=== PATIENT | male | born 1985 | race Caucasian/White ===

== ENCOUNTER 2020-06-30 12:25 | Outpatient (REF) | payer MEDICARE, MEDICAID, SELFPAY ==
[2020-06-30 14:02] LABS: Alanine Aminotransferase 17 U/L (0-40); Albumin Level 4.5 g/dL (3.5-5.0); Alkaline Phosphatase 69 U/L (39-117); Anion Gap 13 (12-20); Aspartate Amino Transferase 20 U/L (5-37); Bilirubin Total 0.7 mg/dL (0.0-1.0); Blood Urea Nitrogen 12 mg/dL (9-16); Calcium 8.9 mg/dL (8.4-10.2); Carbon Dioxide 27 mmol/L (22-29); Chloride 106 mmol/L (96-108); Cholesterol 213 mg/dL; Estimated Glomerular Filt Rate 56; Glucose Fasting 88 mg/dL (60-99); HDL Cholesterol 42 mg/dL; LDL Cholesterol Calculated 142 mg/dl; Potassium 4.6 mmol/l (3.3-5.1); Sodium 141 mmol/L (135-145); Total Protein 7.1 g/dL (6.5-8.0); Triglycerides 148 mg/dL
== END 2020-06-30 12:26 | disposition home or self-care (01) ==
LOC: HO.LAB 12:25
PROVIDERS: PCP Internal Medicine; Visit Provider Internal Medicine
DX: E11.9 Type 2 diabetes mellitus without complications (principal)
CPT/HCPCS: 80053; 80061

== ENCOUNTER 2020-09-06 09:16 | Outpatient (REF) | payer MEDICARE, MEDICAID, SELFPAY ==
--- NOTE | 2020-09-06 09:19 | EMG_ITS ---
HISTORY OF PRESENT ILLNESS: This is a 35-year-old man, who is on disability for some learning problems, is on no medications, comes in with 2 month history of upper extremity pain and numbness especially in his wrists on using them. 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 The right hand is worse than the left. He is on no medications except marijuana recreational. PHYSICAL EXAMINATION: On examination, he is alert and oriented with normal intellectual functions. Cranial nerves II through XII are normal. Muscle tone and strength are normal in all 4 extremities. Deep tendon reflexes symmetrical. Plantar responses flexor. No Tinel or Phalen sign. IMPRESSION: Nerve conduction EMG study: Normal electrodiagnostic study of both upper extremities. No evidence of carpal tunnel syndrome or nerve entrapment. Normal EMG of the right C5-T1 innervated muscles. MD LUCIA Jacobo/AZAR / [id number]
== END 2020-09-06 09:17 | disposition home or self-care (01) ==
LOC: HO.NEURO 09:16
PROVIDERS: Visit Provider Internal Medicine
DX: G56.01 Carpal tunnel syndrome, right upper limb (principal)
CPT/HCPCS: 95886; 95913

== ENCOUNTER 2023-12-04 13:17 | Outpatient (AMB) | payer MEDICARE, MEDICAID, SELFPAY ==
[2023-12-04 13:20] VITALS: BP 158/98; PULSE 83; O2SAT 98; BMI 37.3
--- NOTE | 2023-12-04 13:20 | MHC.PC.OV ---
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 Review of the notes had an nerve conduction test in October 2020 of the upper extremity showing normal electrodiagnostic study of both upper extremities with no evidence of carpal tunnel syndrome and normal C5-T1 innervated muscles on the right. Review of the blood work that was done in 2019 shows renal insufficiency and hypercholesterolemia. [facility] Surgical History (Updated 06/29/20 @ 14:02 by Karly Sullivan Skyla) No pertinent past surgical history Family History (Updated 12/04/23 @ 13:52 by Beatriz Gtz MD) Father Heart attack Mother Colon cancer Son No problems noted. Brother Heart attack Other AA (alcohol abuse) Mental health disorder Substance use disorder Social History (Updated 12/04/23 @ 13:54 by Beatriz Gtz MD) Housing: Other Housing Other:: In between homes Alcohol intake: current Alcohol intake frequency: a few times a month Comment: stopped 10/2023 Patient Tobacco Use Status: Current everyday Tobacco user Tobacco use type: Cigarette Cigarette Packs Per Day: 2 Cigarettes Per Day: 20 Years Smoked: pack a day since 13 (asked 11/2023) e-Cigarette/Vaping Use: Never Used Second Hand Smoke Exposure: Yes service: No Current occupational status: disabled Current occupational exposures/hazards: No Cognitive needs: No Hearing needs: No Vision needs: Yes Questionnaire PHQ-9 Over the last 2 weeks, how often have you been bothered by any of the following problems? 1. Little interest or pleasure in doing things: nearly every day 2. Feeling down, depressed, or hopeless: nearly every day 3. Trouble falling or staying asleep, or sleeping too much: more than half the days 4. Feeling tired or having little energy: nearly every day 5. Poor appetite or overeating: not at all 6. Feeling bad about yourself - or that you are a failure or have let yourself or your family down: several days 7. Trouble concentrating on things, such as reading the newspaper or watching television: more than half the days 8. Moving or speaking so slowly that other people could have noticed. Or the opposite - being so fidgety or restless that you have been moving around a lot more than usual: not at all 9. Thoughts that you would be better off or of hurting yourself in some way: not at all Total score: 14 Depression Screening Interpretation: Positive Depression Screening Done: Yes Source: Developed by Drs. Parish Conklin, Renae Montejo, Tyler Newman and colleagues, with an educational nani from [employer]. 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 What is your living situation today?: I do not have a steady places to live Within the past 12 months, did the food you bought not last and you didn't have the money to get more?: Sometimes True Within the past 12 months, did you worry whether your food would run out before you got money to buy more?: Sometimes True Do you have trouble paying for medicines?: No Do you have trouble getting transportation to medical appointments?: No Do you have trouble paying your heating and electricity bill?: No Do you have trouble taking care of your child, family member or friend?: No Do you have trouble with day-to-day activities such as bathing, preparing meals, shopping, managing finances, etc.?: No Are you currently unemployed and looking for a job?: No Are you interested in more education?: No Currently or been in a relationship where the following occur: no concerns reported THRIVE Score: 3 AUDIT C Alcohol Use Questionnaire (AUDIT-C) 1. How often do you have a drink containing alcohol?: Never (Has not drank in a month. Has a chip, going to meetings. ) 3. How often do you have six or more drinks on one occasion?: Never Total Score: 0 DENNYS-7 AMB Questionnaire DENNYS-7 Date DENNYS - 7 assessed: 12/04/23 Feeling nervous, anxious, or on edge: 2 = More than half the days Not being able to stop or control worryin = More than half the days Worrying too much about different things: 2 = More than half the days Trouble relaxin = Several days Being so restless that it is hard to sit still: 1 = Several days Becoming easily annoyed or irritable: 2 = More than half the days Feeling afraid as if something awful might happen: 2 = More than half the days Total DENNYS-7 score (0-4 normal; 5-9 mild; 10-14 moderate; 15-21 severe): 12 Source: Developed by Drs. Parish Conklin, Renae Montejo, Tyler Newman and colleagues, with an educational nani from [employer]. DENNYS-7 Assessment Billing DENNYS-7 Assessment Tool: DENNYS-7 Assessment 82043 Physical exam (Primary Care) Vital Signs: Last Vital Signs Pulse 83 12/04/23 13:20 BP 120/70 12/04/23 13:46 Pulse Ox 98 12/04/23 13:20 Oxygen Delivery Method Room Air 12/04/23 13:20 BMI result Body Mass Index 37.3 Tobacco/Smoking Status: Tobacco use Status Tobacco use date assessed 12/04/23 12/04/23 13:35 Patient Tobacco Use Status Current everyday Tobacco 12/04/23 13:54 Tobacco use type Cigarette 12/04/23 13:54 e-Cigarette/Vaping Use Never Used 12/04/23 13:54 PHQ-9: PHQ-9 Score PHQ-9: Total score 14 12/04/23 13:49 Depression Screening Interpretation: Positive Thrive Assessment: Date of Thrive Assessment Date Thrive assessed 12/04/23 12/04/23 13:35 Currently or been in a relationship where the following occur: no concerns reported Const General: alert; No acute distress Eyes Conjunctivae: conjunctivae normal Resp Auscultation: clear to auscultation bilaterally Cardio Rate: regular rate Rhythm: regular rhythm GI Inspection: Yes normal to inspection Extrem General: Yes normal to inspection and No edema Results AMB Hemoglobin A1c AMB Hemoglobin A1c 5.1 % Last Edit by June Watson CMA on 12/04/23 13:50 Immunizations pneumoc 20-maribel conj-dip cr(PF) 0.5 mL IM syringe Performing Provider: Beatriz Gtz MD Performing Location: [facility] Administered by: June Watson CMA on 12/04/23 14:13 Dose Route Admin Location Dispensed Lot Number Expiration Date NDC Lotus Notes Administrator 0.5 mL IM Left Deltoid 0.5 mL [id number] 12/16/24 8375-3354-92 [employer] VIS Given Date VIS Provided VIS Publication Date 12/04/23 Single Vaccine 21 Eligibility Eligibility Date Funding Source Not VF Eligible 12/04/23 Private Results Reviewed Results Reviewed: Laboratory Last Values Hgb A1c (Clinic) 5.1 % (4.0-6.0) 12/04/23 13:35 Assessment and Plan Assessment & Plan (1) Obesity (BMI 30-39.9): Code(s): E66.9 - Obesity, unspecified Plan: Diet and exercise (2) Hypercholesterolemia: Code(s): E78.00 - Pure hypercholesterolemia, unspecified Plan: Avoid fried foods, chicken skin, eggs, butter margarine, pastries and meat. Be it pork or beef they have a lot of cholesterol LDL goal of less than 130 and triglyceride of less than 150. (3) Renal insufficiency: Code(s): N28.9 - Disorder of kidney and ureter, unspecified Plan: Keep well hydrated avoid NSAIDs blood work will need to be repeated (4) Tobacco abuse: Code(s): Z72.0 - Tobacco use (5) GERD (gastroesophageal reflux disease): Code(s): K21.9 - Gastro-esophageal reflux disease without esophagitis Orders: Orders AMB Hemoglobin A1c Today Z13.9 - Encounter for screening, unspecified Thyroid Stimulating Hormone Today E78.00 - Pure hypercholesterolemia, unspecified Vitamin B12 and Folate Today E78.00 - Pure hypercholesterolemia, unspecified XR chest 2V Today Z72.0 - Tobacco use PFT pulmonary function test Today Z72.0 - Tobacco use Pneumococcal 20 Immunization Today Z23 - Encounter for immunization Complete Blood Count Auto Diff Today E78.00 - Pure hypercholesterolemia, unspecified Comprehensive Met. Panel Today E78.00 - Pure hypercholesterolemia, unspecified Free T4 (Free Thyroxine) Today E78.00 - Pure hypercholesterolemia, unspecified Lipid Panel Today E78.00 - Pure hypercholesterolemia, unspecified ECG 12 lead EKG Today E78.00 - Pure hypercholesterolemia, unspecified Medications: New pneumoc 20-maribel conj-dip cr(PF) 0.5 mL IM ONCE 0.5 mL 0RF Z23 - Encounter for immunization Coding Level of Care Code Est Pt Level 4 (27323) Diagnoses Obesity (BMI 30-39.9) E66.9 Hypercholesterolemia E78.00 Renal insufficiency N28.9 Tobacco abuse Z72.0 GERD (gastroesophageal reflux disease) K21.9 Additional Codes DENNYS-7 Assessment Billing - DENNYS-7 Assessment Tool: DENNYS-7 Assessment 60127 ([id number])
[2023-12-04 13:46] VITALS: BP 120/70
== END 2023-12-04 14:21 | disposition home or self-care (01) ==
PROVIDERS: PCP Internal Medicine; Visit Provider Internal Medicine
DX: E78.00 Pure hypercholesterolemia, unspecified (principal); E66.9 Obesity, unspecified; Z68.37 Body mass index [BMI] 37.0-37.9, adult; Z23 Encounter for immunization; N28.9 Disorder of kidney and ureter, unspecified; Z72.0 Tobacco use; K21.9 Gastro-esophageal reflux disease without esophagitis
CPT/HCPCS: 83036; 90471; 90677; 99214

== ENCOUNTER 2023-12-13 10:04 | Outpatient (REF) | payer MEDICARE, MEDICAID, SELFPAY ==
--- NOTE | ~2023-12-13 | XR_ITS ---
EXAMINATION: XR CHEST 2 VIEWS CLINICAL INFORMATION: Tobacco use. COMPARISON: None. TECHNIQUE: Frontal and lateral views of the chest were obtained. FINDINGS: The heart, great vessels, pulmonary vasculature and mediastinum are normal. The lungs show no focal infiltrate, effusion or pneumothorax. There is no acute osseous abnormality. XR/XR chest 2V IMPRESSION: No active cardiopulmonary disease.
[2023-12-13 10:29] LABS: MANUAL DIFF FLAG NO
[2023-12-13 11:20] LABS: Basophils Absolute Auto 0.1 X10*3/uL (0.0-0.2); Basophils Percent Auto 0.8 % (0-2); Eosinophils Absolute Auto 0.1 X10*3/uL (0.0-0.4); Eosinophils Percent Auto 1.8 % (0-4); Hematocrit 46.1 % (42.0-52.0); Hemoglobin 16.4 g/dl (14.0-18.0); Imm Gran Abs Auto 0.05 X10*3/uL (0.00-0.03); Imm Gran Pct Auto 0.6 % (0.0-0.4); Lymphocytes Absolute Auto 2.4 X10*3/uL (1.2-4.9); Mean Corpuscular HGB Conc 35.6 g/dl (31.0-36.0); Mean Corpuscular Hemoglobin 32.9 pg (27.0-33.0); Mean Corpuscular Volume 92.4 fL (80.0-98.0); Mean Platelet Volume 9.2 fL (9.4-12.4); Monocytes Absolute Auto 0.7 X10*3/uL (0.1-1.2); Monocytes Percent Auto 8.8 % (2-11); Neutrophils Absolute Auto 4.5 x10*3/uL (2.0-8.3); Platelet Count 228 X10*3/uL (160-400); Red Blood Count 4.99 X10*6/uL (4.60-5.80); Red Cell Distribution Width 12.4 % (11.0-16.0); White Blood Count 7.9 X10*3/uL (4.8-10.8)
[2023-12-13 12:27] LABS: Alanine Aminotransferase 19 U/L (0-40); Albumin Level 4.3 g/dL (3.5-5.0); Alkaline Phosphatase 81 U/L (39-117); Anion Gap 14 (12-20); Aspartate Amino Transferase 21 U/L (5-37); Bilirubin Total 0.4 mg/dL (0.0-1.0); Blood Urea Nitrogen 10 mg/dL (9-16); Calcium 9.4 mg/dL (8.4-10.2); Carbon Dioxide 25 mmol/L (22-29); Chloride 108 mmol/L (96-108); Cholesterol 193 mg/dL (<200); Estimated Glomerular Filt Rate > 60; Free T4 (Free Thyroxine) 0.93 ng/dL (0.71-1.85); Glucose Random 99 mg/dL (60-115); HDL Cholesterol 45 mg/dL (>40); LDL Cholesterol Calculated 123 mg/dL (<100); Potassium 4.1 mmol/L (3.3-5.1); Sodium 143 mmol/L (135-145); Thyroid Stimulating Hormone 1.93 uIU/mL (0.32-4.0); Total Protein 7.5 g/dL (6.5-8.0); Triglycerides 126 mg/dL (<150)
[2023-12-13 12:38] LABS: Folate 5.2 ng/mL (> or = 4.0); Vitamin B12 414 pg/mL (200-900)
== END 2023-12-13 10:05 | disposition home or self-care (01) ==
LOC: HO.XRAY 10:04
PROVIDERS: PCP Internal Medicine; Visit Provider Internal Medicine
DX: E78.00 Pure hypercholesterolemia, unspecified (principal); Z72.0 Tobacco use
CPT/HCPCS: 36415; 71046; 80053; 80061; 82607; 82746; 84439; 84443; 85025

== ENCOUNTER 2024-05-04 15:03 | Outpatient (AMB) | payer MEDICARE, MEDICAID, SELFPAY ==
[2024-05-04 15:06] VITALS: BP 130/78; PULSE 87; O2SAT 96; BMI 39.1
--- NOTE | 2024-05-04 15:06 | A.OFFPC_ITS ---
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 complains of leg swelling. noted mass on the R axilla and R testicle [facility] Surgical History (Updated 06/29/20 @ 14:02 by Karly Sullivan [facility]) No pertinent past surgical history Family History (Updated 05/04/24 @ 15:38 by Beatriz Gtz MD) Father Heart attack Mother Colon cancer, Onset Age: 70 Son No problems noted. Brother Heart attack Other AA (alcohol abuse) Mental health disorder Substance use disorder Social History (Updated 05/04/24 @ 15:39 by Beatriz Gtz MD) Housing: Other Housing Other:: In between homes Alcohol intake: current Alcohol intake frequency: a few times a month Comment: 2x a week 3 nips Patient Tobacco Use Status: Current everyday Tobacco user Tobacco use type: Cigarette Cigarette Packs Per Day: 2 Cigarettes Per Day: 10 Years Smoked: pack a day since 13 (asked 11/2023) e-Cigarette/Vaping Use: Never Used Second Hand Smoke Exposure: Yes service: No Current occupational status: disabled Current occupational exposures/hazards: No Cognitive needs: No Hearing needs: No Vision needs: Yes Questionnaire PHQ-9 Over the last 2 weeks, how often have you been bothered by any of the following problems? 1. Little interest or pleasure in doing things: several days 2. Feeling down, depressed, or hopeless: more than half the days 3. Trouble falling or staying asleep, or sleeping too much: nearly every day 4. Feeling tired or having little energy: more than half the days 5. Poor appetite or overeating: nearly every day 6. Feeling bad about yourself - or that you are a failure or have let yourself or your family down: more than half the days 7. Trouble concentrating on things, such as reading the newspaper or watching television: more than half the days 8. Moving or speaking so slowly that other people could have noticed. Or the opposite - being so fidgety or restless that you have been moving around a lot more than usual: not at all 9. Thoughts that you would be better off or of hurting yourself in some way: several days Total score: 16 Depression Screening Interpretation: Positive Depression Screening Done: Yes 96854 - PHQ-9 Billing: Yes Source: Developed by Drs. Parish Conklin, Renae Montejo, Tyler Newman and colleagues, with an educational nani from [employer]. Thrive Questionnaire Date Thrive assessed: 12/04/23 I am a: Patient What is your living situation today?: I do not have a steady places to live I am living in a car Within the past 12 months, did the food you bought not last and you didn't have the money to get more?: Often true Within the past 12 months, did you worry whether your food would run out before you got money to buy more?: Often true Do you have trouble paying for medicines?: No Do you have trouble getting transportation to medical appointments?: No Do you have trouble paying your heating and electricity bill?: No Do you have trouble taking care of your child, family member or friend?: No Do you have trouble with day-to-day activities such as bathing, preparing meals, shopping, managing finances, etc.?: No Are you currently unemployed and looking for a job?: No Are you interested in more education?: No Please select the resources that you would like help with: Housing/Long-Term Currently or been in a relationship where the following occur: No concerns reported THRIVE Score: 3 AUDIT C Alcohol Use Questionnaire (AUDIT-C) 1. How often do you have a drink containing alcohol?: 2-3 times a week 2. How many drinks containing alcohol do you have on a typical day when you are drinking?: 3 or 4 3. How often do you have six or more drinks on one occasion?: Monthly Total Score: 6 DENNYS-7 AMB Questionnaire DENNYS-7 Date DENNYS - 7 assessed: 12/04/23 Feeling nervous, anxious, or on edge: 2 = More than half the days Not being able to stop or control worryin = Nearly every day Worrying too much about different things: 3 = Nearly every day Trouble relaxin = Nearly every day Being so restless that it is hard to sit still: 1 = Several days Becoming easily annoyed or irritable: 2 = More than half the days Feeling afraid as if something awful might happen: 1 = Several days Total DENNYS-7 score (0-4 normal; 5-9 mild; 10-14 moderate; 15-21 severe): 15 Source: Developed by Drs. Parish Conklin, Renae Montejo, Tyler Newman and colleagues, with an educational nani from [employer]. Review of Systems Const Denies poor appetite and Denies weakness Eyes Denies no additional complaints ENT Reports Normal hearing present, Denies dizziness, Denies nasal congestion, Denies tinnitus and Denies sore throat Card Denies chest pain, Denies syncope, Denies rapid heart rate and Denies dyspnea Resp Denies cough and Denies dyspnea GI Denies change in stool character, Reports constipation, Denies diarrhea, Denies nausea and Denies vomiting Denies dysuria and Denies urinary frequency Neuro Reports Normal hearing present, Denies confusion, Denies dizziness, Denies syncope and Denies weakness Psych Denies confusion Physical exam (Primary Care) Vital Signs: Last Vital Signs Pulse 87 05/04/24 15:06 BP 130/78 05/04/24 15:06 Pulse Ox 96 05/04/24 15:06 Oxygen Delivery Method Room Air 05/04/24 15:06 BMI result Body Mass Index 39.1 Tobacco/Smoking Status: Tobacco use Status Tobacco use date assessed 12/04/23 05/04/24 15:11 Patient Tobacco Use Status Current everyday Tobacco 05/04/24 15:39 Tobacco use type Cigarette 05/04/24 15:39 e-Cigarette/Vaping Use Never Used 05/04/24 15:39 PHQ-9: PHQ-9 Score PHQ-9: Total score 16 05/04/24 15:34 Depression Screening Interpretation: Positive Thrive Assessment: Date of Thrive Assessment Date Thrive assessed 12/04/23 05/04/24 15:11 Currently or been in a relationship where the following occur: No concerns reported Const General: No confusion Orientation/consciousness: No confusion HENMT Head: Yes normocephalic Ears: external ears normal and TM's normal bilaterally Face and sinus: Yes normal facial exam Mouth: moist mucous membranes Throat: Yes tonsils normal Eyes Conjunctivae: conjunctivae normal Pupils: Equal, round and reactive pupils present and Pupil accommodation reflex normal Direct Ophthalmoscopy: normal light reflex Neck Neck: No lymphadenopathy Thyroid: Thyroid normal Chest Other: R axillary hyperpigmentd skin mass 2 by 3 cm Chest palpation & inspection: normal inspection of the chest Resp Effort & Inspection: normal respiratory effort and no audible wheezes Auscultation: clear to auscultation bilaterally, no crackles, no wheezes and lung sounds not diminished Cardio Rate: regular rate Rhythm: regular rhythm Peripheral pulses: radial pulses present and dorsalis pedis present GI Other: visual negative rectal mass Palpation (GI): no masses Auscultation: normal bowel sounds and normoactive bowel sounds Rectal Exam - Male: Yes deferred Other: R posterior scrotal mass 3 by 4 cm tender on palpation Skin General skin exam: no rashes or lesions noted Rashes: no rashes Neuro General: No confusion Cranial nerves: Yes Equal, round and reactive pupils present and Yes Normal hearing present Cognition (Neuro): normal cognition Gait exam (Neuro): Normal gait present Motor exam (neuro): 5/5 motor strength present throughout Deep tendon reflexes (DTR's): Right brachioradialis reflex intensity grade: 2+, Left brachioradialis reflex intensity grade: 2+, Right patellar reflex intensity grade: 2+ and Left patellar reflex intensity grade: 2+ Extrem General: No edema Immunizations Boostrix Tdap 2.5 Lf unit-8 mcg-5 Lf/0.5 mL intramuscular syringe Performing Provider: Beatriz Gtz MD [facility] Administered by: June Watson CMA on 05/04/24 16:07 Dose Route Admin Location Dispensed Lot Number Expiration Date [facility] [employer] 0.5 mL IM Left Deltoid 0.5 mL [id number] 06/06/26 25774-518-97 [employer] VIS Given Date VIS Provided VIS Publication Date 05/04/24 Single Vaccine 21 Eligibility Eligibility Date Funding Source Not [facility] Eligible 05/04/24 Private Assessment and Plan Assessment & Plan (1) Annual physical exam: Code(s): Z00.00 - Encounter for general adult medical examination without abnormal findings Plan: Patient is advised to eat healthy, keep well hydrated, keep active and have adequate sleep. (2) Tobacco abuse: Code(s): Z72.0 - Tobacco use Plan: Patient is strongly advised to stop smoking! (3) Renal insufficiency: Code(s): N28.9 - Disorder of kidney and ureter, unspecified Plan: Resolved, keep well hydrated, avoid NSAID (4) Hypercholesterolemia: Code(s): E78.00 - Pure hypercholesterolemia, unspecified Plan: Avoid fried foods, chicken skin, eggs, butter margarine, pastries and meat. Be it pork or beef they have a lot of cholesterol. Repeat blood work did decrease the LDL LDL goal of less than 130 and triglyceride of less than 150 (5) Obesity (BMI 30-39.9): Code(s): E66.9 - Obesity, unspecified Plan: Diet and exercise (6) GERD (gastroesophageal reflux disease): Code(s): K21.9 - Gastro-esophageal reflux disease without esophagitis Plan: Avoid the foods that causes that usually spicy foods, tomato products, juices, coffee, soda and foods that your sensitive to. After eating do not lie down, allow 3-4 hours before in lie down. And keep the head of bed above 30 degrees to avoid the acid from going up. (7) Reactive airway disease: Code(s): J45.909 - Unspecified asthma, uncomplicated (8) Hypersomnia: Code(s): G47.10 - Hypersomnia, unspecified (9) Axillary abscess: Comment: right Code(s): L02.419 - Cutaneous abscess of limb, unspecified (10) Testicular mass: Comment: right Code(s): N50.89 - Other specified disorders of the male genital organs (11) Tinea cruris: Code(s): B35.6 - Tinea cruris Orders: Orders RT home sleep study Today G47.10 - Hypersomnia, unspecified TDaP Immunization Today Z23 - Encounter for immunization US scrotum Today N50.89 - Other specified disorders of the male genital organs US renal BI Today N28.9 - Disorder of kidney and ureter, unspecified Referrals General Surgery Referral L02.419 - Cutaneous abscess of limb, unspecified, N50.89 - Other specified disorders of the male genital organs Medications: New albuterol sulfate 90 mcg/actuation (Ventolin HFA) 2 puffs inhalation Q4-6H PRN 8.5 grams 0RF shortness of breath or wheezing J45.909 - Unspecified asthma, uncomplicated amoxicillin-pot clavulanate 875-125 mg 1 tab PO BID 14 tabs 0RF L02.419 - Cutaneous abscess of limb, unspecified clotrimazole 1% 1 appl topical BID 4 weeks 45 grams 0RF B35.6 - Tinea cruris Boostrix Tdap (diphth,pertus(acell),tetanus) 0.5 mL IM ONCE 0.5 mL 0RF NS Z23 - Encounter for immunization miconazole nitrate 2% (Zeasorb AF) 1 appl topical DAILY 85 grams 1RF B35.6 - Tinea cruris Coding Level of Care Code Est Pt Prev Care 40-64y(93215) Diagnoses Annual physical exam Z00.00 Tobacco abuse Z72.0 Renal insufficiency N28.9 Hypercholesterolemia E78.00 Obesity (BMI 30-39.9) E66.9 GERD (gastroesophageal reflux disease) K21.9 Reactive airway disease J45.909 Hypersomnia G47.10 Axillary abscess L02.419 Testicular mass N50.89 Tinea cruris B35.6
== END 2024-05-04 16:17 | disposition home or self-care (01) ==
PROVIDERS: PCP Internal Medicine; Visit Provider Internal Medicine
DX: Z00.00 Encounter for general adult medical examination without abnormal findings (principal); Z72.0 Tobacco use; N28.9 Disorder of kidney and ureter, unspecified; E78.00 Pure hypercholesterolemia, unspecified; E66.9 Obesity, unspecified; K21.9 Gastro-esophageal reflux disease without esophagitis; J45.909 Unspecified asthma, uncomplicated; G47.10 Hypersomnia, unspecified; L02.419 Cutaneous abscess of limb, unspecified; N50.89 Other specified disorders of the male genital organs; B35.6 Tinea cruris; Z23 Encounter for immunization

== ENCOUNTER → 2024-05-04 15:03 | Outpatient (BNVA) | payer MEDICARE, MEDICAID, SELFPAY | PROVIDERS: PCP Internal Medicine; Visit Provider Internal Medicine | DX: Z00.01 Encounter for general adult medical examination with abnormal findings (principal); Z23 Encounter for immunization; B35.6 Tinea cruris; N28.9 Disorder of kidney and ureter, unspecified; E66.9 Obesity, unspecified; K21.9 Gastro-esophageal reflux disease without esophagitis; N50.89 Other specified disorders of the male genital organs; Z72.0 Tobacco use | CPT/HCPCS: 90471; 90715; 99396 ==

== ENCOUNTER 2024-05-11 09:11 | Outpatient (REF) | payer MEDICARE, MEDICAID, SELFPAY | END 2024-05-11 09:12 | disposition home or self-care (01) | LOC: HO.LAB 09:11 | PROVIDERS: PCP Internal Medicine; Referring Provider Internal Medicine; Visit Provider Surgery | DX: L02.419 Cutaneous abscess of limb, unspecified (principal); N49.2 Inflammatory disorders of scrotum | CPT/HCPCS: 10060; 55100; 87070; 87205; 99202 ==

== ENCOUNTER 2024-05-11 09:11 | Outpatient (AMB) | payer MEDICARE, MEDICAID, SELFPAY ==
--- NOTE | 2024-05-11 09:14 | MHC.OFFVIS ---
Vital Signs 05/11/24 09:20 Height 5 ft 6 in Weight 248 lb 4 oz BMI 40.1 BP 138/63 Blood Pressure Location Rt brachial Position Sitting Pulse 65 Intake Visit Reasons: abscess of the right groin and armpit Intake Note: Patient referred by pcp Dr. Gtz for abscess on rt groin present for 1yr. 2nd concern abscess on rt axilla, comes and goes for about 1yr. Enlarging. Patient c/o: painful. Girlfriend tried squeezing but nothing came out. Vascular Manager Required: No Accompanied by: Self / Same As Patient Allergies No Known Allergies Allergy (Verified 05/11/24 09:19) Medication List - Last Reconciled 05/11/24 by Nestor Hernandez MD albuterol sulfate 90 mcg/actuation (Ventolin HFA) 2 puffs inhalation Q4-6H PRN amoxicillin-pot clavulanate 875-125 mg 1 tab PO BID clotrimazole 1% 1 appl topical BID 4 weeks miconazole nitrate 2% (Zeasorb AF) 1 appl topical DAILY HPI Comments Details: Patient presents with 2 abscesses; 1 involving the right axilla, right involving the right scrotum which he has had for a proximally 3 weeks time. He has had several courses of antibiotics with limited improvement. These areas are still painful and symptomatic and he would like to have them addressed. He has no such lesions elsewhere. Chart was reviewed and patient evaluated [facility] Surgical History No pertinent past surgical history Family History Father Heart attack Mother Colon cancer, Onset Age: 70 Son No problems noted. Brother Heart attack Other AA (alcohol abuse) Mental health disorder Substance use disorder Social History Housing: Other Housing Other:: In between homes Alcohol intake: current Alcohol intake frequency: a few times a month Comment: 2x a week 3 nips Patient Tobacco Use Status: Current everyday Tobacco user Tobacco use type: Cigarette Cigarette Packs Per Day: 2 Cigarettes Per Day: 10 Years Smoked: pack a day since 13 (asked 11/2023) e-Cigarette/Vaping Use: Never Used Second Hand Smoke Exposure: Yes service: No Current occupational status: disabled Current occupational exposures/hazards: No Cognitive needs: No Hearing needs: No Vision needs: Yes Physical Exam Vital Signs: Last Vital Signs Pulse 65 05/11/24 09:20 BP 138/63 05/11/24 09:20 BMI result Body Mass Index 40.1 Other: Roughly 3 x 3 cm right scrotal abscess Extrem Other: A roughly 4 x 3 cm right axillary abscess Office Procedures I&D Drain Details: Risks, benefits, and alternatives of incision drainage of right axillary and right scrotal complex abscesses were reviewed with the patient included but not limited to bleeding, infection, recurrence, numbness, pain, scarring the patient wished to proceed. All questions answered. 1. Patient underwent 1% lidocaine Betadine prep and uneventfully incision drainage of a right axillary abscess. Culture obtained. Copious amounts permanent serial drained. Wound irrigated, packed, and dressing applied. 2. Patient underwent 1% lidocaine and Betadine prep of right scrotal abscess. Wound was drained of purulence, irrigated, packed, and dressing applied. Both procedures well tolerated. [id number]-Vhrshiew of Skin Abscess, complex All charges added?: Procedure code (CPT) selection complete Assessment & Plan Assessment & Plan (1) Axillary abscess: Comment: right Code(s): L02.419 - Cutaneous abscess of limb, unspecified Category: Surgical Plan: Patient has been given local instructions, seen by Leonard rice nurse care person, he will undergo packing changes per her schedule, analgesics, antibiotics, and will see me as directed or p.r.n.. All questions answered. (2) Scrotal abscess: Code(s): N49.2 - Inflammatory disorders of scrotum Category: Surgical Plan: See above Orders: Orders Routine Culture w Gram Stain Today L02.419 - Cutaneous abscess of limb, unspecified AMB Incision & Drainage Today L02.419 - Cutaneous abscess of limb, unspecified, N49.2 - Inflammatory disorders of scrotum Medications: New cephalexin 500 mg PO TID 30 caps 0RF hydrocodone-acetaminophen 5-325 mg Partial Fill upon patient request. 1 tab PO Q4-6H PRN 30 tabs 0RF pain Coding Level of Care Code New Pt Level 5 (02972) Diagnoses Axillary abscess L02.419 Scrotal abscess N49.2 CPT Codes I&D Drain - Drain 2: [id number] of Skin Abscess, complex ([id number])
[2024-05-11 09:20] VITALS: BP 138/63; PULSE 65; BMI 40.1
== END 2024-05-11 09:44 | disposition home or self-care (01) ==
PROVIDERS: PCP Internal Medicine; Referring Provider Internal Medicine; Visit Provider Surgery
DX: L02.411 Cutaneous abscess of right axilla (principal); N49.2 Inflammatory disorders of scrotum
CPT/HCPCS: 10060; 55100; 99204

== ENCOUNTER → 2024-05-13 09:22 | Outpatient (BNVA) | payer MEDICARE, MEDICAID, SELFPAY | PROVIDERS: PCP Internal Medicine; Visit Provider Surgery | DX: Z48.01 Encounter for change or removal of surgical wound dressing (principal) | CPT/HCPCS: 99211 ==

== ENCOUNTER 2024-05-18 10:59 | Outpatient (AMB) | payer MEDICARE, MEDICAID, SELFPAY ==
--- NOTE | 2024-05-18 11:00 | MHC.OFFVIS ---
Intake Visit Reasons: 1 wk follow up I & D x 2 Intake Note: Patient here 1wk s/p I&D on rt axilla and rt groin. Cephalexin course Patient c/o: sites slowly healing. Some oozing. Emergency Response Coordinator Required: No Accompanied by: Spouse Allergies No Known Allergies Allergy (Verified 05/18/24 11:05) HPI Comments Details: Patient presents with a significant other. Status post I&D times tube; right axilla and right groin. He has no wound issues or complaints. He completed his antibiotic course. He is undergoing local wound care. [facility] Surgical History No pertinent past surgical history Family History Father Heart attack Mother Colon cancer, Onset Age: 70 Son No problems noted. Brother Heart attack Other AA (alcohol abuse) Mental health disorder Substance use disorder Social History Housing: Other Housing Other:: In between homes Alcohol intake: current Alcohol intake frequency: a few times a month Comment: 2x a week 3 nips Patient Tobacco Use Status: Current everyday Tobacco user Tobacco use type: Cigarette Cigarette Packs Per Day: 2 Cigarettes Per Day: 10 Years Smoked: pack a day since 13 (asked 11/2023) e-Cigarette/Vaping Use: Never Used Second Hand Smoke Exposure: Yes service: No Current occupational status: disabled Current occupational exposures/hazards: No Cognitive needs: No Hearing needs: No Vision needs: Yes Physical Exam Other: Right groin wound healing very well granulating. Infection resolved Extrem Other: Right axillary wound healing very well, granulating. Infection resolved Assessment & Plan Assessment & Plan (1) Follow-up exam: Code(s): Z09 - Encounter for follow-up examination after completed treatment for conditions other than malignant neoplasm Category: Surgical Plan Patient has been given local instructions, and will otherwise follow-up p.r.n.. All questions answered. Coding Level of Care Code Global (91899) Diagnoses Follow-up exam Z09
== END 2024-05-18 11:09 | disposition home or self-care (01) ==
PROVIDERS: PCP Internal Medicine; Visit Provider Surgery
DX: Z09 Encounter for follow-up examination after completed treatment for conditions other than malignant neoplasm (principal)
CPT/HCPCS: 99024

== ENCOUNTER 2024-05-18 13:48 | Outpatient (REF) | payer MEDICARE, MEDICAID, SELFPAY ==
--- NOTE | ~2024-05-18 | US_ITS ---
EXAMINATION: US SCROTUM CLINICAL INFORMATION: Testicular mass, renal insufficiency. According to the patient, an abscess was drained from the right testicle a few days ago. COMPARISON: CT abdomen/pelvis 01/23/2017. TECHNIQUE: A sonogram of the scrotum was performed assessing ruiz-scale appearance and color Doppler flow. Spectral Doppler analysis of the arterial and venous flow were performed in the testes bilaterally. FINDINGS: RIGHT: Right testicle measures 4.34 x 2.46 x 3.58 cm, volume 20.0 mL. No focal testicular parenchymal lesions are visualized. Spectral Doppler analysis of the arterial and venous flow is normal in the right testis. There is a heterogeneous area superior and lateral to the right testis that measures 2.7 x 1.0 x 1.1 cm. Right epididymal head is normal in size. No right varicocele is seen. A small right hydrocele is seen. Right epididymal Doppler flow is normal. LEFT: Left testicle measures 4.07 x 2.26 x 2.74 cm, volume 13.2 mL. No focal testicular parenchymal lesions are visualized. Spectral Doppler analysis of the arterial and venous flow is normal in the left testis. Left epididymal head is normal in size. A small left hydrocele is seen. Left epididymal Doppler flow is normal. US/US scrotum IMPRESSION: 1. The testes appear normal. 2. There is a heterogeneous area superior and lateral to the right testis. This could represent a hematoma or residua of presumed drained abscess. 3. Small bilateral hydroceles. Electronically signed by: Jason Washington MD 07/01/2024 11:51 AM OTILIA
--- NOTE | ~2024-05-18 | US_ITS ---
EXAMINATION: US RETROPERITONEAL LIMITED (RENAL ONLY) CLINICAL INFORMATION: Renal insufficiency. COMPARISON: CT abdomen and pelvis 01/23/2017. TECHNIQUE: Real-time imaging of the kidneys. FINDINGS: RIGHT KIDNEY: 10.9 x 4.9 x 6.4 cm (SAG x AP x TRV). The kidney is normal in size, contour, and echogenicity. Renal cortical thickness is normal. No calculi or focal parenchymal lesions. No hydronephrosis. LEFT KIDNEY: 10.3 x 5.2 x 5.8 cm (SAG x AP x TRV). The kidney is normal in size, contour, and echogenicity. Renal cortical thickness is normal. No calculi or focal parenchymal lesions. No hydronephrosis. US/US renal BI IMPRESSION: Normal exam. Electronically signed by: Jason Washington MD 07/01/2024 11:51 AM EST
== END 2024-05-18 13:49 | disposition home or self-care (01) ==
LOC: HO.HMGCX 13:48
PROVIDERS: PCP Internal Medicine; Visit Provider Internal Medicine
DX: N50.89 Other specified disorders of the male genital organs (principal); N28.9 Disorder of kidney and ureter, unspecified
CPT/HCPCS: 76775; 76870; 99212

== ENCOUNTER 2024-06-08 13:00 | Outpatient (REF) | payer MEDICARE, MEDICAID, SELFPAY ==
--- NOTE | 2020-06-08 13:00 | PFT_ITS ---
Flows: FEV1: 80 % of predicted at 3.07 L FVC: 88 % of predicted at 4.15 L FEV1/FVC: 74 % Bronchodilator response: Absent Volumes: Total lung capacity: 76 % of predicted at 4.93 L Residual volume: 68 % of predicted at 1.00 L Slow vital capacity: 78 % of predicted at 3.93 L Expiratory reserve volume: 43 % of predicted at 0.59 L Diffusion capacity: Normal Impression: Mild restrictive ventilatory defect with no bronchodilator response. Decreased expiratory reserve volume suggests extrathoracic restriction likely secondary to abdominal obesity. MTDD
[2024-06-08 11:21] VITALS: PULSE 80; RESP 16; O2SAT 97
== END 2024-06-08 13:01 | disposition home or self-care (01) ==
LOC: HO.RESP 13:00
PROVIDERS: PCP Internal Medicine; Visit Provider Internal Medicine
DX: Z72.0 Tobacco use (principal)
CPT/HCPCS: 94010; 94640; 94727; 94729

== ENCOUNTER 2024-09-01 12:28 | Outpatient (AMB) | payer MEDICARE, MEDICAID, SELFPAY ==
[2024-09-01 12:43] VITALS: BP 138/72; PULSE 88; O2SAT 96; BMI 41.3
--- NOTE | 2024-09-01 12:43 | A.OFFPC_ITS ---
Vital Signs 3 09/01/24 12:43 Height 5 ft 6 in Weight 256 lb BMI 41.3 BP 138/72 Blood Pressure Location Lt brachial Position Sitting Pulse 88 Pulse Source Pulse Oximeter Pulse Oximetry (%) 96 Oxygen Delivery Method Room Air Intake Visit Reasons: Rash Allergies No Known Allergies Allergy (Verified 09/01/24 12:43) Tobacco use date assessed: 09/01/24 Dental Screening Dental Screen Date: 09/01/24 Did you have a dental visit in the last 12 months?: Yes Did you have a dental problem in the last 6 months where you did not have access to dental care?: No Was dental information given to patient?: Patient has dentist HPI Rash 2 HPI0 Details The patient is a 39-year-old male presenting with various health concerns, primarily focusing on a persistent rash in the groin and neck area. He reports that this rash is recurrent, itchy, and associated with excessive sweating, which he attributes to a fungal infection. The rash has been managed with prescribed topical creams, which alleviate symptoms temporarily. However, the absence of antifungal powder, due to insurance issues, limits further control of the sweat-induced exacerbations. Additionally, the patient is following up regarding previously drained abscesses from the right armpit and groin area. An ultrasound revealed small bilateral hydroceles which currently require no intervention as they remain asymptomatic. The patient also has a history of hypercholesterolemia, with recent improvements in his lipid profile. Previously, his low-density lipoprotein (LDL) cholesterol was recorded at 142 mg/dL, and recent assessments show a reduction to 123 mg/dL, indicating positive dietary changes and reduced intake of soda and caffeine. He experiences discomfort from an abdominal hernia, which has become more painful, especially when lying on the affected side. The patient is considering surgical intervention upon advice from his surgeon and awaits a formal referral for further evaluation. The patient also acknowledges smoking half a pack of cigarettes daily, attempting to reduce his usage. He has also expressed hesitancy towards flu vaccination, citing personal beliefs. The need for a sleep study has been discussed, given prior sleep difficulties and environmental instability; this has been postponed due to previous living conditions. [facility] Surgical History No pertinent past surgical history Family History Father Heart attack Mother Colon cancer, Onset Age: 70 Son No problems noted. Brother Heart attack Other AA (alcohol abuse) Mental health disorder Substance use disorder Social History Housing: Other Housing Other:: In between homes Alcohol intake: current Alcohol intake frequency: a few times a month Comment: 2x a week 3 nips Patient Tobacco Use Status: Current everyday Tobacco user Tobacco use type: Cigarette Cigarette Packs Per Day: 0.5 Cigarettes Per Day: 10 Years Smoked: pack a day since 13 (asked 11/2023) e-Cigarette/Vaping Use: Never Used Second Hand Smoke Exposure: Yes service: No Current occupational status: disabled Current occupational exposures/hazards: No Cognitive needs: No Hearing needs: No Vision needs: Yes Questionnaire PHQ-9 Over the last 2 weeks, how often have you been bothered by any of the following problems? 1. Little interest or pleasure in doing things: several days 2. Feeling down, depressed, or hopeless: more than half the days 3. Trouble falling or staying asleep, or sleeping too much: nearly every day 4. Feeling tired or having little energy: more than half the days 5. Poor appetite or overeating: nearly every day 6. Feeling bad about yourself - or that you are a failure or have let yourself or your family down: more than half the days 7. Trouble concentrating on things, such as reading the newspaper or watching television: more than half the days 8. Moving or speaking so slowly that other people could have noticed. Or the opposite - being so fidgety or restless that you have been moving around a lot more than usual: not at all 9. Thoughts that you would be better off or of hurting yourself in some way: several days Total score: 16 Depression Screening Interpretation: Positive Depression Screening Done: Yes 60509 - PHQ-9 Billing: Yes Source: Developed by Drs. Parish Conklin, Renae Montejo, Tyler Newman and colleagues, with an educational nani from [employer]. Thrive Questionnaire Date Thrive assessed: 09/01/24 I am a: Patient What is your living situation today?: I do not have a steady places to live I am living in a car Within the past 12 months, did the food you bought not last and you didn't have the money to get more?: Often true Within the past 12 months, did you worry whether your food would run out before you got money to buy more?: Often true Do you have trouble paying for medicines?: No Do you have trouble getting transportation to medical appointments?: No Do you have trouble paying your heating and electricity bill?: No Do you have trouble taking care of your child, family member or friend?: No Do you have trouble with day-to-day activities such as bathing, preparing meals, shopping, managing finances, etc.?: No Are you currently unemployed and looking for a job?: No Are you interested in more education?: No Please select the resources that you would like help with: Housing/[facility] Currently or been in a relationship where the following occur: No concerns reported THRIVE Score: 3 AUDIT C Alcohol Use Questionnaire (AUDIT-C) 1. How often do you have a drink containing alcohol?: 2-3 times a week 2. How many drinks containing alcohol do you have on a typical day when you are drinking?: 3 or 4 3. How often do you have six or more drinks on one occasion?: Monthly Total Score: 6 DENNYS-7 AMB Questionnaire DENNYS-7 Date DENNYS - 7 assessed: 09/01/24 Feeling nervous, anxious, or on edge: 2 = More than half the days Not being able to stop or control worryin = Nearly every day Worrying too much about different things: 3 = Nearly every day Trouble relaxin = Nearly every day Being so restless that it is hard to sit still: 1 = Several days Becoming easily annoyed or irritable: 2 = More than half the days Feeling afraid as if something awful might happen: 1 = Several days Total DENNYS-7 score (0-4 normal; 5-9 mild; 10-14 moderate; 15-21 severe): 15 Source: Developed by Drs. Parish Conklin, Renae Montejo, Tyler Newman and colleagues, with an educational nani from [employer]. Physical exam (Primary Care) Vital Signs: Last Vital Signs Pulse 88 09/01/24 12:43 BP 138/72 09/01/24 12:43 Pulse Ox 96 09/01/24 12:43 Oxygen Delivery Method Room Air 09/01/24 12:43 BMI result Body Mass Index 41.3 Tobacco/Smoking Status: Tobacco use Status Tobacco use date assessed 09/01/24 09/01/24 12:50 Patient Tobacco Use Status Current everyday Tobacco 09/01/24 12:50 Tobacco use type Cigarette 09/01/24 12:50 e-Cigarette/Vaping Use Never Used 09/01/24 12:50 PHQ-9: PHQ-9 Score PHQ-9: Total score 16 09/01/24 12:50 Depression Screening Interpretation: Positive Thrive Assessment: Date of Thrive Assessment Date Thrive assessed 09/01/24 09/01/24 12:50 Currently or been in a relationship where the following occur: No concerns reported Const General: alert; No acute distress Eyes Conjunctivae: conjunctivae normal Resp Auscultation: clear to auscultation bilaterally Cardio Rate: regular rate Rhythm: regular rhythm GI Inspection: Yes normal to inspection Abdomen image: 2 1. mild bulge on the L abdominal wall with tenderness Skin Other: maculopapuplar rash erythermatous all around the neck and groin area Extrem General: Yes normal to inspection and No edema Coding Level of Care Code Est Pt Level 4 (30825) Diagnoses Bilateral hydrocele N43.3 Tobacco abuse Z72.0 GERD (gastroesophageal reflux disease) K21.9 Hypercholesterolemia E78.00 Renal insufficiency N28.9 Obesity (BMI 30-39.9) E66.9 Tinea cruris B35.6 Abdominal wall hernia K43.9 Allergic dermatitis L23.9 Hypersomnia G47.10 Additional Codes PHQ-9 - 49971 - PHQ-9 Billing: Yes ([id number]) Assessment & Plan Assessment & Plan (1) Bilateral hydrocele: Code(s): N43.3 - Hydrocele, unspecified Category: Medical (2) Tobacco abuse: Code(s): Z72.0 - Tobacco use Category: Medical (3) GERD (gastroesophageal reflux disease): Code(s): K21.9 - Gastro-esophageal reflux disease without esophagitis Category: Medical (4) Hypercholesterolemia: Code(s): E78.00 - Pure hypercholesterolemia, unspecified Category: Medical (5) Renal insufficiency: Code(s): N28.9 - Disorder of kidney and ureter, unspecified Category: Medical (6) Obesity (BMI 30-39.9): Code(s): E66.9 - Obesity, unspecified Category: Medical (7) Tinea cruris: Code(s): B35.6 - Tinea cruris Category: Medical (8) Abdominal wall hernia: Code(s): K43.9 - Ventral hernia without obstruction or gangrene Category: Medical (9) Allergic dermatitis: Code(s): L23.9 - Allergic contact dermatitis, unspecified cause Category: Medical (10) Hypersomnia: Code(s): G47.10 - Hypersomnia, unspecified Category: Medical Plan - For the rash, continue current antifungal cream application and purchase [id number] antifungal powder for enhanced control of sweating and prevention of future episodes. - Monitor bilateral hydroceles; no immediate intervention required unless symptomatic changes occur. - Continue dietary modifications as cholesterol management has shown positive results; monitor lipid levels periodically. - For the abdominal hernia, consider surgical referral to Dr. Hernandez for potential repair, given increasing discomfort. - Advise smoking cessation strategies to reduce tobacco use further. - Administer flu vaccine today. Face Cleaner on the importance of vaccines for health protection despite personal beliefs. - Reinitiate arrangements for a home-based sleep study, taking into account current stable living conditions. Orders: Orders 2 RT home sleep study Today G47.10 - Hypersomnia, unspecified Referrals 2 General Surgery Referral K43.9 - Ventral hernia without obstruction or gangrene Medications: New 2 clotrimazole-betamethasone 1-0.05 % 1 appl topical BID 2 weeks 45 grams 0RF L23.9 - Allergic contact dermatitis, unspecified cause miconazole nitrate 2% (Zeasorb AF) 1 appl topical BID 85 grams 0RF L23.9 - Allergic contact dermatitis, unspecified cause Refilled 2 clotrimazole 1% 1 appl topical BID 4 weeks 90 grams 0RF B35.6 - Tinea cruris
== END 2024-09-01 13:24 | disposition home or self-care (01) ==
PROVIDERS: PCP Internal Medicine; Visit Provider Internal Medicine
DX: N43.3 Hydrocele, unspecified (principal); Z72.0 Tobacco use; Z68.41 Body mass index [BMI] 40.0-44.9, adult; E66.813 Obesity, class 3; K21.9 Gastro-esophageal reflux disease without esophagitis; E78.00 Pure hypercholesterolemia, unspecified; N28.9 Disorder of kidney and ureter, unspecified; B35.6 Tinea cruris; K43.9 Ventral hernia without obstruction or gangrene; L23.9 Allergic contact dermatitis, unspecified cause; G47.10 Hypersomnia, unspecified; Z23 Encounter for immunization

== ENCOUNTER → 2024-09-01 12:28 | Outpatient (BNVA) | payer MEDICARE, MEDICAID, SELFPAY | PROVIDERS: PCP Internal Medicine; Visit Provider Internal Medicine | DX: N43.3 Hydrocele, unspecified (principal); E78.00 Pure hypercholesterolemia, unspecified; F17.210 Nicotine dependence, cigarettes, uncomplicated; K21.9 Gastro-esophageal reflux disease without esophagitis; N28.9 Disorder of kidney and ureter, unspecified; E66.9 Obesity, unspecified; B35.6 Tinea cruris; K43.9 Ventral hernia without obstruction or gangrene; L23.9 Allergic contact dermatitis, unspecified cause; G47.10 Hypersomnia, unspecified; Z23 Encounter for immunization; Z72.0 Tobacco use | CPT/HCPCS: 90471; 90656; 96127; 99212 ==

== ENCOUNTER 2024-09-07 15:22 | Outpatient (AMB) | payer MEDICARE, MEDICAID, SELFPAY ==
--- NOTE | 2024-09-07 15:22 | A.OFFVIS_ITS ---
Vital Signs 09/07/24 15:29 Height 5 ft 6 in Weight 253 lb BMI 40.8 BP 135/71 Blood Pressure Location Lt brachial Position Sitting Pulse 82 Intake Visit Reasons: hernia Intake Note: Patient referred by pcp Dr. Gtz for hernia. Present for a few yrs. Patient c/o: recently became bothersome when laying on side. Bulging out. Denies nausea, vomiting, diarrhea. Lead Network Engineer Required: No Accompanied by: spouse Ursula Allergies No Known Allergies Allergy (Verified 09/07/24 15:27) HPI Comments Details: Patient presents with a significant other for concern that he may have an abdominal wall hernia. This is in his left lateral mid abdomen. He thinks he has a bulge or swelling there. In the meantime, he is tolerating a diet. He is having regular bowel habits. Does occasional strenuous activities PFSH Surgical History No pertinent past surgical history Family History Father Heart attack Mother Colon cancer, Onset Age: 70 Son No problems noted. Brother Heart attack Other AA (alcohol abuse) Mental health disorder Substance use disorder Social History Housing: Other Housing Other:: In between homes Alcohol intake: current Alcohol intake frequency: a few times a month Comment: 2x a week 3 nips Patient Tobacco Use Status: Current everyday Tobacco user Tobacco use type: Cigarette Cigarette Packs Per Day: 0.5 Cigarettes Per Day: 10 Years Smoked: pack a day since 13 (asked 11/2023) e-Cigarette/Vaping Use: Never Used Second Hand Smoke Exposure: Yes service: No Current occupational status: disabled Current occupational exposures/hazards: No Cognitive needs: No Hearing needs: No Vision needs: Yes Physical Exam Vital Signs: Last Vital Signs Pulse 82 09/07/24 15:29 BP 135/71 09/07/24 15:29 BMI result Body Mass Index 40.8 GI Other: Patient was examined both supine and standing with Valsalva. Very protuberant corpulent abdomen. Small reducible umbilical hernia but this is not the site of his symptoms. He has left mid abdominal area which he feels his hernia though none was demonstrated clinically. Bilateral groin exam negative. Genitalia within normal limits. Assessment & Plan Assessment & Plan (1) Left flank mass: Code(s): R19.00 - Intra-abdominal and pelvic swelling, mass and lump, unspecified site Category: Surgical Plan: Because of the significant corpulent of the abdomen, exam is somewhat ch allenging although no obvious hernia was demonstrated. Current plan is to arrange for an ultrasound of the area to rule out any hernia or pathology and patient was see me after the study. All questions answered. Orders: Orders US abdomen limited 09/07/24 R19.00 - Intra-abdominal and pelvic swelling, mass and lump, unspecified site Coding Level of Care Code Est Pt Level 4 (72773) Diagnoses Left flank mass R19.00
[2024-09-07 15:29] VITALS: BP 135/71; PULSE 82; BMI 40.8
== END 2024-09-07 15:39 | disposition home or self-care (01) ==
PROVIDERS: PCP Internal Medicine; Visit Provider Surgery
DX: R19.00 Intra-abdominal and pelvic swelling, mass and lump, unspecified site (principal)
CPT/HCPCS: 99214

== ENCOUNTER → 2024-09-07 15:22 | Outpatient (BNVA) | payer MEDICARE, MEDICAID, SELFPAY | PROVIDERS: PCP Internal Medicine; Visit Provider Surgery | DX: K42.9 Umbilical hernia without obstruction or gangrene (principal); R19.00 Intra-abdominal and pelvic swelling, mass and lump, unspecified site | CPT/HCPCS: 99212 ==

== ENCOUNTER 2024-11-10 09:13 | Outpatient (AMB) | payer MEDICARE, MEDICAID, SELFPAY ==
--- NOTE | 2024-11-10 09:17 | A.OFFVIS_ITS ---
Intake Visit Reasons: right axillary abscess Intake Note: Patient c/o abscess on Rt axilla. Denies pain, oozing. Was removed in August but keeps growing back. Night Time Nanny Required: No Accompanied by: Self / Same As Patient Allergies No Known Allergies Allergy (Verified 11/10/24 09:20) HPI Comments Details: Patient whom I have seen in the past who presents here with a recurrence in his right axillary abscess. He has required I&D in the past. This has been going on for several days time. Spontaneously drained. He presents here for further evaluation. As hernia noted, he has been seen for this issue in the past. [facility] Surgical History No pertinent past surgical history Family History Father Heart attack Mother Colon cancer, Onset Age: 70 Son No problems noted. Brother Heart attack Other AA (alcohol abuse) Mental health disorder Substance use disorder Social History Housing: Other Housing Other:: In between homes Alcohol intake: current Alcohol intake frequency: a few times a month Comment: 2x a week 3 nips Patient Tobacco Use Status: Current everyday Tobacco user Tobacco use type: Cigarette Cigarette Packs Per Day: 0.5 Cigarettes Per Day: 10 Years Smoked: pack a day since 13 (asked 11/2023) e-Cigarette/Vaping Use: Never Used Second Hand Smoke Exposure: Yes service: No Current occupational status: disabled Current occupational exposures/hazards: No Cognitive needs: No Hearing needs: No Vision needs: Yes Physical Exam Extrem Other: Right axilla demonstrates an inflamed sebaceous cyst which has spontaneously drained. Surrounding erythema. No I&D required at this time. Assessment & Plan Assessment & Plan (1) Infected sebaceous cyst: Code(s): L72.3 - Sebaceous cyst; L08.9 - Local infection of the skin and subcutaneous tissue, unspecified Category: Surgical Plan Patient was been given local instructions including warm compresses, script for antibiotics, and will see me as directed or p.r.n.. Once the inflammatory process has resolved, consideration will be made for excision of this recurrent infected symptomatic sebaceous cyst. All questions answered. Medications: New cephalexin 500 mg PO TID 30 caps 0RF Coding Level of Care Code Est Pt Level 4 (32646) Diagnoses Infected sebaceous cyst L72.3; L08.9
== END 2024-11-10 09:26 | disposition home or self-care (01) ==
LOC: HO.HGS 09:14
PROVIDERS: PCP Internal Medicine; Visit Provider Surgery
DX: L72.3 Sebaceous cyst (principal); L08.9 Local infection of the skin and subcutaneous tissue, unspecified
CPT/HCPCS: 99214

== ENCOUNTER → 2024-11-10 09:13 | Outpatient (BNVA) | payer MEDICARE, MEDICAID, SELFPAY | PROVIDERS: PCP Internal Medicine; Visit Provider Surgery | DX: Z09 Encounter for follow-up examination after completed treatment for conditions other than malignant neoplasm (principal); Z87.2 Personal history of diseases of the skin and subcutaneous tissue | CPT/HCPCS: 99212 ==

== ENCOUNTER 2024-11-23 13:03 | Outpatient (AMB) | payer MEDICARE, MEDICAID, SELFPAY ==
--- NOTE | 2024-11-23 13:08 | MHC.OFFVIS ---
Intake Visit Reasons: right axillary abscess Intake Note: Patient here to follow up cyst on Rt axilla. Cephalexin course completed. Allergies No Known Allergies Allergy (Verified 11/23/24 13:08) HPI Comments Details: Patient was whom I know from the past who presents with follow-up status post right axillary abscess/infection. He has had marked improvement of this. Patient also would like to have his umbilical hernia dressed. He has had this for an uncertain amount of time. Is increasing in size, become more symptomatic. He otherwise tolerating a diet. He has regular bowel habits. No other GI issues or complaints. He does occasional strenuous activities.. Chart was reviewed and patient evaluated [facility] Surgical History No pertinent past surgical history Family History Father Heart attack Mother Colon cancer, Onset Age: 70 Son No problems noted. Brother Heart attack Other AA (alcohol abuse) Mental health disorder Substance use disorder Social History Housing: Other Housing Other:: In between homes Alcohol intake: current Alcohol intake frequency: a few times a month Comment: 2x a week 3 nips Patient Tobacco Use Status: Current everyday Tobacco user Tobacco use type: Cigarette Cigarette Packs Per Day: 0.5 Cigarettes Per Day: 10 Years Smoked: pack a day since 13 (asked 11/2023) e-Cigarette/Vaping Use: Never Used Second Hand Smoke Exposure: Yes service: No Current occupational status: disabled Current occupational exposures/hazards: No Cognitive needs: No Hearing needs: No Vision needs: Yes Physical Exam Chest Other: Chest breath sounds bilaterally, HS 1 in 2 GI Other: Abdomen corpulent, soft, benign. Roughly 2 cm reducible umbilical hernia.. Groin exam negative Extrem Other: Infected right axillary sebaceous cyst has markedly improved. Erythema and edema resolved Assessment & Plan Assessment & Plan (1) Umbilical hernia: Code(s): K42.9 - Umbilical hernia without obstruction or gangrene Category: Surgical (2) Sebaceous cyst of axilla: Code(s): L72.3 - Sebaceous cyst Category: Surgical Plan Risks, benefits, alternatives of 1. Umbilical hernia repair with mesh 2. Right axillary sebaceous cyst excision were reviewed with the patient included but not limited to bleeding, infection, recurrence, numbness, pain, scarring and the patient wished to proceed. All questions answered. Arrangements will be made for this on a day which is convenient for him. Coding Level of Care Code Est Pt Level 5 (04837) Diagnoses Umbilical hernia K42.9 Sebaceous cyst of axilla L72.3
== END 2024-11-23 13:18 | disposition home or self-care (01) ==
PROVIDERS: PCP Internal Medicine; Visit Provider Surgery
DX: K42.9 Umbilical hernia without obstruction or gangrene (principal); L72.3 Sebaceous cyst
CPT/HCPCS: 99214

== ENCOUNTER → 2024-11-23 13:03 | Outpatient (BNVA) | payer MEDICARE, MEDICAID, SELFPAY | PROVIDERS: PCP Internal Medicine; Visit Provider Surgery | DX: K42.9 Umbilical hernia without obstruction or gangrene (principal); L72.3 Sebaceous cyst | CPT/HCPCS: 99212 ==

== ENCOUNTER 2024-11-29 13:29 | Outpatient (AMB) | payer MEDICARE, MEDICAID, SELFPAY ==
--- NOTE | 2024-11-29 13:32 | A.OFFPC_ITS ---
Vital Signs 11/29/24 13:34 Height 5 ft 6 in Weight 255 lb 6 oz BMI 41.2 BP 110/64 Blood Pressure Location Lt brachial Position Sitting Pulse 99 Pulse Source Pulse Oximeter Temp 97.7 F Temp Source Temporal Artery Scan Pulse Oximetry (%) 94 Oxygen Delivery Method Room Air Intake Visit Reasons: Ear Infection Intake Note: Patient complains of right ear infection. Operations Manager Assistant Required: No Wire Web Worker: Not Required per policy Accompanied by: Self / Same As Patient Allergies No Known Allergies Allergy (Verified 11/29/24 13:44) Medication List - Last Reconciled 11/29/24 by Anna Villa PA-C albuterol sulfate 90 mcg/actuation (Ventolin HFA) 2 puffs inhalation Q4-6H PRN aspirin 81 mg PO DAILY clotrimazole 1% 1 appl topical BID 4 weeks clotrimazole-betamethasone 1-0.05 % 1 appl topical BID 2 weeks miconazole nitrate 2% (Zeasorb AF) 1 appl topical BID Tobacco use date assessed: 11/29/24 Dental Screening Dental Screen Date: 09/01/24 HPI Ear Infection HPI Details 39-year-old male with past medical histo ry of hypercholesterolemia, renal insufficiency, GERD, tobacco abuse, reactive airway disease last seen 08/2024 coming in for acute problem. Presenting with suspected otitis externa in the right ear, beginning three days ago. The patient reports difficulty hearing, popping noise, and jaw pain associated with teeth clenching. Recently finished antibiotics for an upcoming umbilical hernia surgery. There have been no fevers or difficulty swallowing. The patient used Q-tips to alleviate itching, leading to scabbing. He also reports picking at the scabs in his ears. [facility] Surgical History No pertinent past surgical history Family History Father Heart attack Mother Colon cancer, Onset Age: 70 Son No problems noted. Brother Heart attack Other AA (alcohol abuse) Mental health disorder Substance use disorder Social History Housing: Other Housing Other:: In between homes Alcohol intake: former Comment: 2x a week 3 nips Patient Tobacco Use Status: Current everyday Tobacco user Tobacco use type: Cigarette Cigarette Packs Per Day: 0.5 Cigarettes Per Day: 10 Years Smoked: pack a day since 13 (asked 11/2023) e-Cigarette/Vaping Use: Never Used Second Hand Smoke Exposure: Yes service: No Current occupational status: disabled Current occupational exposures/hazards: No Cognitive needs: No Hearing needs: No Vision needs: Yes Questionnaire Thrive Questionnaire Date Thrive assessed: 09/01/24 DENNYS-7 AMB Questionnaire DENNYS-7 Date DENNYS - 7 assessed: 09/01/24 Source: Developed by Drs. Parish Conklin, Renae Montejo, Tyler Newman and colleagues, with an educational nani from [employer]. Review of Systems Const Denies body aches, Denies chills, Denies fever(s), Denies headache(s) and Denies poor appetite Eyes Reports no additional complaints ENT Denies dysphagia, Reports otalgia, Denies facial pain, Denies headache(s) and Denies odynophagia Card Denies chest pain and Denies dyspnea Resp Denies dyspnea GI Denies dysphagia and Denies odynophagia Reports no additional complaints Musc Denies abnormal gait Skin/Breast Reports system reviewed and no additional complaints, except as documented Neuro Denies abnormal gait and Denies headache(s) Psych Reports no additional complaints Physical exam (Primary Care) Vital Signs: Last Vital Signs Temp 97.7 F 11/29/24 13:34 Pulse 99 11/29/24 13:34 BP 110/64 11/29/24 13:34 Pulse Ox 94 11/29/24 13:34 Oxygen Delivery Method Room Air 11/29/24 13:34 BMI result Body Mass Index 41.2 Tobacco/Smoking Status: Tobacco use Status Tobacco use date assessed 11/29/24 11/29/24 13:40 Patient Tobacco Use Status Current everyday Tobacco 11/29/24 13:39 Tobacco use type Cigarette 11/29/24 13:39 e-Cigarette/Vaping Use Never Used 11/29/24 13:39 Thrive Assessment: Date of Thrive Assessment Date Thrive assessed 09/01/24 11/29/24 13:32 Const General: cooperative, healthy appearing, comfortable and no acute distress Orientation/consciousness: patient oriented x3 HENMT Other: No tenderness to palpation over bilateral mastoid processes. Tenderness to palpation over right pinna and right TMJ Head: Yes normocephalic Ears: hearing grossly normal bilaterally, TM normal on the left, EAC's normal (Left only), Abnormal EAC present edema on the right and unable to visualize TM on the right General nose exam: Normal external nose present Eyes General: appearance normal, both eyes and all related structures Conjunctivae: conjunctivae normal Neck Neck: Yes full ROM and Yes no lymphadenopathy Resp Effort & Inspection: normal respiratory effort Auscultation: clear to auscultation bilaterally, no crackles, no rales, no rhonchi and no wheezes Cardio Rate: regular rate Rhythm: regular rhythm Skin General skin exam: no rashes or lesions noted Neuro General: patient oriented x3 Gait exam (Neuro): Normal gait present Extrem General: Yes normal to inspection, Yes full ROM and No edema Psych Affect: normal affect Attitude: cooperative Insight: Good insight present (Psych) Judgement: Good judgement present (Psych) Coding Level of Care Code Est Pt Level 3 (14821) Diagnoses Obesity (BMI 30-39.9) E66.9 Otitis externa H60.90 Assessment & Plan Assessment & Plan (1) Obesity (BMI 30-39.9): Code(s): E66.9 - Obesity, unspecified Category: Medical Plan: Healthy diet and regular exercise is encouraged. (2) Otitis externa: Code(s): H60.90 - Unspecified otitis externa, unspecified ear Category: Medical Plan: I prescribed doxycycline to cover potential bacterial infection and any accompanying skin infection due to manipulation with Q-tips. Eardrops with steroids and antibiotics are also prescribed to reduce inflammation and complement antibiotic treatment. Patient is advised against inserting objects in the ear to avoid exacerbating the condition. If symptoms worsen or do not improve in a few days, the patient should seek emergency care. Avoidance of teeth clenching is recommended to help alleviate jaw pain. Plan This note was constructed using voice recognition software. While every effort has been made to ensure accuracy and child custody evaluator, still areas may have been included sometimes these areas may affect the content or meeting of the given symptoms. Total time spent caring for the patient today was 20 minutes. This includes time spent before the visit reviewing the chart, time spent during the visit, and time spent after the visit and documentation. Patient was informed and verbally consented to the use of an ambient scribe for clinic note d ocumentation during this visit. Medications: New doxycycline hyclate 100 mg PO BID 14 caps 0RF ciprofloxacin-dexamethasone 0.3-0.1 % 4 drps otic (ear) right BID 7 days 7.5 mL 0RF
[2024-11-29 13:34] VITALS: BP 110/64; PULSE 99; TEMP 36.5; O2SAT 94; BMI 41.2
== END 2024-11-29 14:07 | disposition home or self-care (01) ==
LOC: HO.HMCH 13:29
PROVIDERS: PCP Internal Medicine
DX: H60.91 Unspecified otitis externa, right ear (principal); E66.9 Obesity, unspecified; Z68.41 Body mass index [BMI] 40.0-44.9, adult

== ENCOUNTER → 2024-11-29 13:29 | Outpatient (BNVA) | payer MEDICARE, MEDICAID, SELFPAY | PROVIDERS: PCP Internal Medicine | DX: E78.00 Pure hypercholesterolemia, unspecified (principal); K21.9 Gastro-esophageal reflux disease without esophagitis; E66.9 Obesity, unspecified; H60.90 Unspecified otitis externa, unspecified ear; Z87.891 Personal history of nicotine dependence | CPT/HCPCS: 99212 ==

== ENCOUNTER 2024-12-16 08:59 | Day surgery (SDC) | payer MEDICARE, MEDICAID, SELFPAY ==
[2024-12-14 09:46] VITALS: BMI 40.8
--- NOTE | 2024-12-14 14:19 | HO.ANESPROP2 ---
Documented by User: Faby Mijares NP 12/14/24 14:20 HPI - Anesthesia Eval Consult details Narrative: 39yo Mf or Repair Hernia Umbilical Reducible with mesh, Right Excision axillary Mass 11/2024 treatment for ear infection PMF Active Problems Active Problems: All Active Problems Otitis externa (Acute) Sebaceous cyst of axilla (Acute) Umbilical hernia (Acute) Infected sebaceous cyst (Acute) Left flank mass (Acute) Allergic dermatitis (Acute) Abdominal wall hernia (Acute) Bilateral hydrocele (Acute) Follow-up exam (Acute) Scrotal abscess (Acute) Tinea cruris (Acute) Testicular mass (Acute) Axillary abscess (Acute) Hypersomnia (Acute) Reactive airway disease (Acute) Annual physical exam (Acute) Tobacco abuse (Acute) GERD (gastroesophageal reflux disease) (Acute) Renal insufficiency (Acute) Hypercholesterolemia (Acute) Obesity (BMI 30-39.9) (Acute) Past Medical History Medical History (Updated 12/16/24 @ 09:59 by Cinda Knight RN) Asthma Elevated cholesterol GERD (gastroesophageal reflux disease) Reactive airway disease Family History Family History Father Heart attack Mother Colon cancer, Onset Age: 70 Son No problems noted. Brother Heart attack Other AA (alcohol abuse) Mental health disorder Substance use disorder Surgical History Surgical History No pertinent past surgical history Social History Social History Housing: Other Housing Other:: In between homes Are you a primary interior plant caretaker to a significant other at home: No Do you presently have visiting nurse or other home services: No Alcohol intake: former Comment: 2x a week 3 nips Patient Tobacco Use Status: Current everyday Tobacco user Tobacco use type: Cigarette Cigarette Packs Per Day: 0.5 Cigarettes Per Day: 10 Years Smoked: pack a day since 13 (asked 11/2023) e-Cigarette/Vaping Use: Never Used Second Hand Smoke Exposure: Yes service: No Current occupational status: disabled Current occupational exposures/hazards: No Cognitive needs: No Hearing needs: No Vision needs: Yes Meds Allergies Allergy/AdvReac Type Severity Reaction Status Date / Time No Known Allergies Allergy Verified 12/16/24 10:00 Home Medications ?Medication ?Instructions ?Recorded ?Confirmed ?Last Taken ?Type aspirin 81 mg tablet,delayed 81 mg PO DAILY 09/01/24 12/14/24 11/16/24 History release Exam Height,Weight and Vital Signs: Height 5 ft 6 in Weight 114.759 kg Assessment and Plan Assessment Anesthesia Assessment: Chart Reviewed Documented by User: Michael Valenzuela MD 12/16/24 11:14 [facility] Past Medical History Medical History (Updated 12/16/24 @ 09:59 by Cinda Knight RN) Asthma Elevated cholesterol GERD (gastroesophageal reflux disease) Reactive airway disease Family History Family History Father Heart attack Mother Colon cancer, Onset Age: 70 Son No problems noted. Brother Heart attack Other AA (alcohol abuse) Mental health disorder Substance use disorder Family history of problems with anesthesia: No Surgical History Surgical History No pertinent past surgical history History of Problems with Anesthesia: No Social History Social History Housing: Other Housing Other:: In between homes Are you a primary interior plant caretaker to a significant other at home: No Do you presently have visiting nurse or other home services: No Alcohol intake: former Comment: 2x a week 3 nips Patient Tobacco Use Status: Current everyday Tobacco user Tobacco use type: Cigarette Cigarette Packs Per Day: 0.5 Cigarettes Per Day: 10 Years Smoked: pack a day since 13 (asked 11/2023) e-Cigarette/Vaping Use: Never Used Second Hand Smoke Exposure: Yes service: No Current occupational status: disabled Current occupational exposures/hazards: No Cognitive needs: No Hearing needs: No Vision needs: Yes Meds Allergies Allergy/AdvReac Type Severity Reaction Status Date / Time No Known Allergies Allergy Verified 12/16/24 10:00 Home Medications ?Medication ?Instructions ?Recorded ?Confirmed ?Last Taken ?Type aspirin 81 mg tablet,delayed 81 mg PO DAILY 09/01/24 12/14/24 11/16/24 History release Exam Airway Mallampati Class: III TM Dist: <=3cm Neck ROM: Full Loose/Missing/Broken Teeth: No Heart: ok Lungs: ok Assessment and Plan Assessment Anesthesia Assessment: Anesthesia Plan Discussed Final Anesthetic Review Family History of Problems with Anesthesia: No History of Problems with Anesthesia: No NPO: Yes ASA Class: III Final Preanesthetic Review: No Changes in Pt Med Stat, Meds/Allgs Chart Reviewed, Consent Obtained/Reviewed and Anes Risks/Benef Reviewed Patient Risk: Intermediate Procedure Risk: Low Anesthetic Plan Anesthetic Plan: GA and Agree w/ Assess. and Plan Disposition: Standard PACU
[2024-12-16 10:06] VITALS: BP 128/75; PULSE 66; RESP 14; TEMP 37; O2SAT 96; BMI 40.6
[2024-12-16] MEDS: Lactated Ringers 1,000 ML 100 ML IVCONT (10:23)
--- NOTE | 2024-12-16 11:08 | P.HPSUR_ITS ---
Pre-Procedural Eval Section A - 24 Hr Update-Section A only Date of Service: 12/16/24 The patient is an INPATIENT: No Changes since office visit: Yes Patient answered all questions; No Cold of Flu in the past 2 weeks, No New Medical Problems and No Changes in Medication The patient has been examined within 24 hours of the surgical procedure. The History & Physical has been completed within 30 days and I have reviewed it.: No Section B - Complete if H&P > 30 days Chief Complaint: Umbilical hernia without obstruction or gangrene Details of Present Illness: 39-year-old male patient presenting with complaints of an enlarging umbilical hernia which is causing some discomfort. He denies nausea, vomiting, fever, chills, diarrhea or constipation. He denies a previous history of hernia surgery. He also complains of a persistent cyst in the right axilla. This was previously excised in the office however residual cyst is still present and causing discomfort. He presents today for repair of the um bilical hernia with mesh as well as excision of the right axillary cyst. Relevant Family History (Specify if Yes): No Relevant Social History: Tobacco Use Present Medications: see Short Stay Collaborative assessment Medical History: Significant History (Renal insufficiency, obesity, GERD, reactive airway disease) History of Previous Operations: No relevant previous surgery Allergies: Allergies Allergy/AdvReac Type Severity Reaction Status Date / Time No Known Allergies Allergy Verified 12/16/24 10:00 Review of Systems Sugical H&P ROS: Negative: Constitution, Cardiovascular, Respiratory, Gastrointestinal, Genitourinary and Musculoskeletal and Yes, Specify: Integumentary (Skin lesion right axilla) Exam Surgical H&P Exam: Normal: HEENT, Normal: Heart, Normal: Lungs, Normal: Extremities and Normal: Neurological and Significant Findings: Abdomen (Small umbilical hernia, easily reducible with light pressure no skin changes) and Significant Findings: Skin (2 cm exquisitely tender epidermal inclusion cyst of the right axilla) Plan Diagnosis/Plan: Unchanged I have reviewed the history and physical and performed a pertinent physical examination on my patient. No changes have occurred unless specified. I reviewed the procedure, alternatives and risks involving repair of the umbilical hernia with mesh and excision of the right axillary epidermal inclusion cyst (sebaceous cyst). He consents to both surgeries. All his questions were answered to his apparent satisfaction. Time Spent With Patient Time: Total time managing care of this patient today ____ minutes.
[2024-12-16] MEDS: ceFAZolin Sodium/Dextrose,Iso 2 GM/50 ML PIGGYBACK IV (11:16)
--- NOTE | 2024-12-16 12:04 | P.OP_ITS ---
Operative Note Operative Note Date of Service: 12/16/24 Narrative: Preoperative diagnosis: Reducible umbilical hernia, epidermal inclusion cyst right axilla Postoperative diagnosis: Same Procedure: Repair of umbilical hernia with mesh (2 cm), excision of epidermal inclusion cyst (3 cm). Surgeon: Oj Singh MD Agricultural Equipment Mechanic: Katerine Pratt PA-C; Zen Carbone PA-C Anesthesia: General LMA Indications for procedure: 39-year-old male patient presenting with a symptomat ic umbilical hernia. On examination the hernia measures approximately 2 cm in diameter and increases in size with Valsalva maneuvers but does reduce with light pressure. He does have some tenderness to palpation as well. He denies nausea, vomiting, fever or chills. He also reports a right axillary cyst which was previously excised but has returned and presents today for wider excision. Operative findings: 2 cm umbilical hernia, repaired using a 4.6 cm round Ventralex mesh Specimen: Epidermal inclusion cyst right axilla Estimated blood loss: 10 mL Complications: None Procedure details: Patient was brought to the OR placed in a supine position. After administering general anesthesia the patient's abdomen was prepped with ChloraPrep and draped in a sterile fashion. A surgical time-out was called the consent confirmed. Patient received preoperative antibiotics and Venodyne boots were in place. Local anesthesia consisting of 0.5% Sensorcaine was infiltrated over the umbilicus in a transverse fashion. A transverse incision was then made in a curvilinear fashion over the umbilicus. This was carried down through the subcutaneous tissue up to the hernia sac. The umbilical skin was then dissected off of the fascia and hernia. A 2 cm umbilical hernia was identified. The fascial edges were identified and freed. Herniating contents contain mainly preperitoneal fat. This was reduced into the abdominal cavity. A preperitoneal space was then dissected using electrocautery and blunt dissection. Next day 4.6 cm round Ventralex mesh was obtained. This was deployed within the preperitoneal space and secured in 4 quadrants using a 0 Tycron suture. The fascia was then closed over the mesh using a [id number] Tycron suture. Approximately 5 mL of Zenrelef was instilled prior to complete closure of the fascia. Wounds were then irrigated with saline solution and suctioned dry. Subcutaneous tissue and umbilical skin was then reapproximated to the fascia using a 3-0 Polysorb suture. Dermis was reapproximated using interrupted 3-0 Polysorb sutures. Skin was closed using a running subcuticular 4-0 Polysorb suture. Steri-Strips, 4 x 4 gauze and Tegaderm were then applied. Next attention was directed to the right axilla. A 3 cm epidermal inclusion cyst was identified in this location. Skin was prepped with Betadine and draped in a sterile fashion. Local anesthesia was then infiltrated around the cyst. An elliptical incision was then made with a scalpel and carried out through subcutaneous tissue and around the cyst wall. Hemostasis was assured using electrocautery. The cyst was completely excised and sent to pathology for further examination. Wounds were then irrigated with saline solution and suctioned dry. Dermis was then reapproximated using interrupted 3-0 Polysorb sutures. Skin was closed using interrupted 3-0 nylon sutures. Sterile dressings consisting of 4 x 4 gauze and paper tape were then applied. The patient tolerated the procedure well. Sponge, instrument, and needle counts reported as correct. The patient was transferred to PACU in stable condition.
[2024-12-16 12:55] VITALS: BP 113/71; RESP 15; TEMP 36.2; O2SAT 99
[2024-12-16 13:00] VITALS: BP 117/73; PULSE 61; RESP 15; O2SAT 99
[2024-12-16 13:05] VITALS: BP 120/71; PULSE 63; RESP 17; O2SAT 99
[2024-12-16 13:10] VITALS: BP 123/72; PULSE 62; RESP 17; O2SAT 99
[2024-12-16 13:25] VITALS: BP 122/74; PULSE 63; RESP 17; TEMP 36.1; O2SAT 100
== END 2024-12-16 13:49 | disposition home or self-care (01) ==
PROVIDERS: PCP Internal Medicine; Visit Provider Surgery
PROC: (CPT 49591; principal; 2024-12-16 11:10)
PROC: (CPT 49591; 2024-12-16 11:10)
DX: K42.9 Umbilical hernia without obstruction or gangrene (principal); L72.3 Sebaceous cyst; J45.909 Unspecified asthma, uncomplicated; E78.00 Pure hypercholesterolemia, unspecified; Z79.82 Long term (current) use of aspirin; F17.210 Nicotine dependence, cigarettes, uncomplicated
CPT/HCPCS: 49591; 11403; 88304; C1781; C9088; J0690; J1885; J2003; J2704; J2795; J3010

== ENCOUNTER → 2024-12-16 08:59 | Outpatient (BNV) | payer MEDICARE, MEDICAID, SELFPAY | PROVIDERS: PCP Internal Medicine; Visit Provider Surgery | DX: K42.9 Umbilical hernia without obstruction or gangrene (principal); L72.0 Epidermal cyst | CPT/HCPCS: 11403; 49591 ==

== ENCOUNTER 2024-12-27 10:27 | Outpatient (AMB) | payer MEDICARE, MEDICAID, SELFPAY ==
--- NOTE | 2024-12-27 10:37 | MHC.OFFVIS ---
Vital Signs 12/27/24 10:46 Height 5 ft 6 in Weight 253 lb 6 oz BMI 40.9 BP 121/81 Blood Pressure Location Lt brachial Position Sitting Pulse 68 Intake Visit Reasons: S/P umbil. hernia, Rt. axillary mass excision Intake Note: Patient is seen in office for post op assessment post Repair of umbilical hernia & excision of epidermal inclusion cyst. Pt c/o: admits to pain in the belly button, specially when bending, incision below the left axilla has a small area open with minimal discharge surgery:12/16/24 Senior Group Manager Required: No Accompanied by: Family/Other Allergies No Known Allergies Allergy (Verified 12/27/24 10:46) HPI HPI S/P umbil. hernia, Rt. axillary mass excision: Details: Patient reports he is doing well, the umbilical incision site has been healing well no concerns. He notes in the immediate days postop that he had some abdominal pain after eating but this has been improving. He notes that the axillary incision site has been draining some fluid from a small hole just above the incision site he has been trying to keep this dry and has reddened irregularity changing dressings. Has had issues with tape pulling off some of his skin at times of removal. He endorses some mild pain at both incision sites. Also endorses abdominal incisional site pain with ambulation. 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 Brother Heart attack Other AA (alcohol abuse) Mental health disorder Substance use disorder Social History Housing: Other Housing Other:: In between homes Are you a primary career services representative to a significant other at home: No Do you presently have visiting nurse or other home services: No Alcohol intake: former Comment: 2x a week 3 nips Patient Tobacco Use Status: Current everyday Tobacco user Tobacco use type: Cigarette Cigarette Packs Per Day: 0.5 Cigarettes Per Day: 10 Years Smoked: pack a day since 13 (asked 11/2023) e-Cigarette/Vaping Use: Never Used Second Hand Smoke Exposure: Yes service: No Current occupational status: disabled Current occupational exposures/hazards: No Cognitive needs: No Hearing needs: No Vision needs: Yes Physical Exam Vital Signs: Last Vital Signs Pulse 68 12/27/24 10:46 BP 121/81 12/27/24 10:46 BMI result Body Mass Index 40.9 Const General: comfortable and no acute distress Orientation/consciousness: patient oriented x3 GI Other: Umbilical incision site intact no surrounding erythema, mild tenderness to palpation Right axillary incision site sutures intact. Small 1 cm open wound just superior to the incision site with scant amount of serous fluid discharge. No surrounding erythema, warmth or edema Inspection: No Abdominal wall edema and No distended Palpation (GI): Soft to palpation, Tenderness to palpation present (GI) (Mild tenderness) periumbilically, no guarding and not rigid Neuro General: patient oriented x3 Assessment & Plan Assessment & Plan (1) S/P umbilical hernia repair, follow-up exam: Code(s): Z09 - Encounter for follow-up examination after completed treatment for conditions other than malignant neoplasm Category: Surgical (2) Sebaceous cyst of axilla: Comment: Right Code(s): L72.3 - Sebaceous cyst Category: Surgical Plan 39-year-old male status post umbilical hernia repair with mesh and right axillary sebaceous cyst excision on 12/16/2024 presents to the office for routine follow-up. Pathology of right axillary excision shows ruptured epidermal inclusion cyst. Overall patient doing well, umbilical incision site healing well patient has mild pain with ambulation. No concerns for infection. Abdominal exam otherwise benign. Right axillary incision has a small 1 cm open wound just superior to the incision site with seroma collection. The incision site remains intact. The seroma was drained in the office using a Q-tip, sutures were removed in the office, patient tolerated this well. The wound was redressed in the office. Recommend that he continue to dress the wound daily. Recommended continued avoidance of heavy lifting greater than 15 to 20 lb and avoidance of strenuous activity. Patient states she will be returning to work will try to do light duty as possible. Patient will return in 1 month for follow-up and wound check. We discussed return precautions, including increasing pain, increasing discharge, warmth, redness malodor from the wound and fever/chills. Patient can return sooner as needed if concern for infection Dr. Gomez evaluated the right axillary incision site and agrees with the above plan. Coding Level of Care Code Est Pt Level 3 (25093) Diagnoses S/P umbilical hernia repair, follow-up exam Z09 Sebaceous cyst of axilla L72.3
[2024-12-27 10:46] VITALS: BP 121/81; PULSE 68; BMI 40.9
== END 2024-12-27 11:03 | disposition home or self-care (01) ==
LOC: HO.HGS 10:27
PROVIDERS: PCP Internal Medicine
DX: L72.3 Sebaceous cyst (principal); Z09 Encounter for follow-up examination after completed treatment for conditions other than malignant neoplasm
CPT/HCPCS: 99213

== ENCOUNTER → 2024-12-27 10:27 | Outpatient (BNVA) | payer MEDICARE, SELFPAY | PROVIDERS: PCP Internal Medicine | DX: Z09 Encounter for follow-up examination after completed treatment for conditions other than malignant neoplasm (principal); Z98.890 Other specified postprocedural states; Z87.19 Personal history of other diseases of the digestive system | CPT/HCPCS: 99212 ==

== ENCOUNTER 2025-04-01 00:04 | Emergency (ER) | payer MEDICARE, SELFPAY ==
[2025-04-01 00:40] VITALS: BP 117/70; PULSE 71; RESP 18; TEMP 36.7; O2SAT 95; BMI 39.2
== END 2025-04-01 03:23 | disposition left against medical advice (07) ==
PROVIDERS: Emergency Provider Emergency Medicine
DX: S61.250A Open bite of right index finger without damage to nail, initial encounter (principal); W55.81XA Bitten by other mammals, initial encounter; Y93.89 Activity, other specified; Y92.480 Sidewalk as the place of occurrence of the external cause; Y99.9 Unspecified external cause status; Z53.21 Procedure and treatment not carried out due to patient leaving prior to being seen by health care provider
CPT/HCPCS: 99281

== ENCOUNTER 2025-04-01 11:52 | Emergency (ER) | payer MEDICARE, MEDICAID, SELFPAY ==
[2025-04-01 12:02] VITALS: BP 134/81; PULSE 64; RESP 18; TEMP 36.6; O2SAT 98; BMI 38.7
--- NOTE | 2025-04-01 12:06 | ED_ITS ---
HPI - Animal Bite General Chief Complaint: Animal Bite Stated Complaint: Animal bite Time Seen by Provider: 04/01/25 15:14 History of Present Illness ED Provider: shania HPI narrative: 40 M with R finger tip bite by skunk 24 hr ago. No bleeding. Sought care last night but left ED before seeing provider.The skunk appeared altered or ataxic or acting injured. Related Data Home Medications ?Medication ?Instructions ?Recorded ?Confirmed aspirin 81 mg tablet,delayed 81 mg PO DAILY 09/01/24 0 12/14/24 release Previous Rx's ?Medication ?Instructions ?Recorded albuterol sulfate 90 mcg/actuation 2 puff inhalation Q 4-6H PRN 05/04/24 aerosol inhaler (Ventolin HFA) shortness of breath or wheezing #8.5 grams clotrimazole 1 % topical cream 1 appl topical BID 4 we eks #90 09/01/24 grams clotrimazole-betamethasone 1 1 appl topical BID 2 week s #45 09/01/24 %-0.05 % topical cream grams miconazole nitrate 2 % topical 1 appl topical BID #85 grams 09/01/24 powder (Zeasorb AF) Allergies Allergy/AdvReac Type Severity Reaction Status Date / Time pea pods Allergy Anaphylaxis Uncoded 04/01/25 12:06 [facility] Past Medical History Medical History Asthma Elevated cholesterol GERD (gastroesophageal reflux disease) Reactive airway disease Surgical History H/O excision of mass (12/16/24) Hx of umbilical hernia repair (12/16/24) Family History Family History Father Heart attack Mother Colon cancer, Onset Age: 70 Son No problems noted. Brother Heart attack Other AA (alcohol abuse) Mental health disorder Substance use disorder Social History Social History Housing: Other Housing Other:: In between homes Are you a primary continuum of care manager to a significant other at home: No Do you presently have visiting nurse or other home services: No Alcohol intake: former Comment: 2x a week 3 nips Patient Tobacco Use Status: Current everyday Tobacco user Tobacco use type: Cigarette Cigarette Packs Per Day: 0.5 Cigarettes Per Day: 10 Years Smoked: pack a day since 13 (asked 11/2023) e-Cigarette/Vaping Use: Never Used Second Hand Smoke Exposure: Yes Advance Directives: No Advance Directives Information Provided: Yes Do you have a plan to hurt others: No Plan service: No Current occupational status: disabled Current occupational exposures/hazards: No Cognitive needs: No Hearing needs: No Vision needs: Yes Physical Exam ED Exam Exam: GENERAL: Well appearing. No apparent distress. Alert. HEAD/NECK: No visual trauma. EYES: Normal to inspection. No conjunctival erythema. No discharge. ENMT: Hearing grossly normal. External nose normal. RESPIRATORY: Respiratory effort normal. CARDIOVASCULAR: Additional details (Grossly well perfused). SKIN: No jaundice. small bite wound R distal index NEUROLOGICAL: Alert. Moving all extremities x4. Additional details (No gross motor deficits. Normal tone. ). PSYCHIATRIC: Alert. Appearance appropriate for situation.Or Vital Signs: Vital Signs - 24 hr 04/01/25 12:02 Temperature 98 F Pulse Rate 64 Respiratory Rate 18 Blood Pressure 134/81 Pulse Oximetry 98 Oxygen Delivery Method Room Air BMI result Body Mass Index 38.7 Course Course Course Narrative: Inocencia Galavizkev PLASTIC [employer]APER 04/01 1206 This is a rapid medical exam. Defer additional HPI, ROS and PE to primary provider. 40-year-old male who is left-hand dominant presents the ER with complaints of skunk bite to the right hand 2nd digit which occurred last evening. Will order rabies vaccine VSS Medications Administered Discontinued Medications Generic Name Dose Route Start Last Admin Trade Name Freq PRN Reason Stop Dose Admin Ondansetron HCl 4 mg 04/01/25 17:08 04/01/25 17:12 Ondansetron Odt 4 Mg Tab.Rapdis TRANSLINGU 04/01/25 17:09 4 mg ONCE ONE Administration Rabies Immune Globulin 2,240 unit 04/01/25 12:07 04/01/25 16:26 Rabies Immune Globulin/Pf 300 Unit/Ml Vial 20 unit/kg (2240 unit) 04/01/25 12:08 2,240 unit IM Administration ONCE ONE Rabies Vaccine 1 ml 04/01/25 12:06 04/01/25 16:24 Rabies Vaccine (Pcec)/Pf 1 Ml Vial IM 04/01/25 12:07 1 ml .ONCE ONE Administration Medical Decision Making Medical Decision Making MDM Narrative: Medical Decision Makin male likely rabies exposure proximally 24 hours ago. Potentially rabid or injured source. Wound clean , no bleading. Does not appear infected. Plan for IG and vaccine for rabies. Preliminary Favored Differential Diagnosis:animal bite, possible rabies exposure among additional considered etiologies Testing Interpreted Independently: Not Applicable Radiology or Lab testing Results Reviewed: Not Applicable Consults: Not Applicable Independent Historians/External Chart Reviews: Not Applicable Social Determinants of Health Impacting MDM/Planning: Not Applicable Discharge Plan Discharge Clinical Impression: Rabies contact Patient Disposition: Home, Self-Care Instructions: Rabies (ED) Additional Instructions: DISCHARGE DIAGNOSES: [01] HISTORY OF PRESENTATION: ?[03] EMERGENCY DEPARTMENT COURSE,TESTS, TREATMENTS: While in the ED today [04] DISCHARGE MEDICATIONS: ?[We have made no changes to your regular medication regimen] FOLLOW-UP: ?Call your primary or general physician soon as possible to discuss your symptoms, your ED visit and to discuss follow up plans [06] INSTRUCTIONS ?& RETURN PRECAUTIONS: If any symptoms change first call your primary physician, if it is after-hours your primary doctors office should have a provider cloth sponger you can speak with. If the symptoms are severe or very concerning to you then call 911 or return to the ED. Nguyễn Marie MD Emergency Physician [facility] Rabies follow up with the [facility]: Upon discharge from the ED today, you will be contacted by the Infusion Center to schedule your follow up Rabies vaccines. You will need a total of 3 more injections. If for some reason you do not receive a call, please call the Infusion Center directly at [phone]. Follow up with your primary care provider after completion of the vaccine to have a titer drawn to ensure the vaccines effectiveness. Prescriptions: No Action albuterol sulfate [Ventolin HFA] 90 mcg/actuation HFA aerosol inhaler 2 puff inhalation Q4-6H PRN (Reason: shortness of breath or wheezing) Qty: 8.5 0RF aspirin 81 mg tablet,delayed release (DR/EC) 81 mg PO DAILY clotrimazole-betamethasone 1-0.05 % cream 1 appl topical BID 14 Days Qty: 45 0RF clotrimazole 1 % cream 1 appl topical BID 28 Days Qty: 90 0RF miconazole nitrate [Zeasorb AF] 2 % powder 1 appl topical BID Qty: 85 0RF Interventions: ED Discharge Assessment Last Done: 04/01/25 16:35 Discharge Date/Time: 04/01/25 17:13 Print Language: Lebanese
[2025-04-01] MEDS: Rabies Vaccine (PCEC)/PF 1 ML VIAL IM (16:24)
[2025-04-01 16:35] VITALS: BP 134/81; PULSE 64; RESP 18; TEMP 36.6; O2SAT 98
== END 2025-04-01 17:13 | disposition home or self-care (01) ==
PROVIDERS: Emergency Provider Emergency Medicine; PCP Internal Medicine
DX: S61.250A Open bite of right index finger without damage to nail, initial encounter (principal); W55.81XA Bitten by other mammals, initial encounter; Y93.89 Activity, other specified; Y92.414 Local residential or business street as the place of occurrence of the external cause; Y99.9 Unspecified external cause status; Z20.3 Contact with and (suspected) exposure to rabies; Z23 Encounter for immunization
CPT/HCPCS: 90375; 90471; 90675; 96372; 99283; 99284

== ENCOUNTER 2025-04-08 07:46 | Outpatient (AMB) | payer MEDICARE, MEDICAID, SELFPAY ==
[2025-04-08 07:53] VITALS: BP 122/74; PULSE 77; TEMP 36.3; O2SAT 97; BMI 39.2
--- NOTE | 2025-04-08 07:53 | A.OFFPC_ITS ---
Vital Signs 04/08/25 07:53 Height 5 ft 7 in Weight 250 lb BMI 39.2 BP 122/74 Blood Pressure Location Lt brachial Position Sitting Pulse 77 Pulse Source Pulse Oximeter Temp 97.3 F Temp Source Temporal Artery Scan Pulse Oximetry (%) 97 Oxygen Delivery Method Room Air Intake Visit Reasons: [facility] - Animal bite, swollen feet Allergies pea pods Allergy (Uncoded 04/08/25 07:56) Anaphylaxis Tobacco use date assessed: 04/08/25 Dental Screening Dental Screen Date: 04/08/25 Did you have a dental visit in the last 12 months?: Yes Did you have a dental problem in the last 6 months where you did not have access to dental care?: No Was dental information given to patient?: Patient has dentist HPI HPI Comments History of Present Illness Details 40 y/o Male patient who presents to the clinic today for EDF. He was admitted at [facility] on 04/01 for an evaluation and treatment following an Animal Bite right fingertip(skunk). He did receive an initial Rabies Shot in the ED that Day. Already has scheduled appointments for additional shots. Today Pt c/o B/L Lower extremities Pain, numbness, tingling and swelling for over a year now. Reports that symptoms come and go. He does endorse diet high in Sodium and sugar. Reports pain with walking and standing. He has not taken any OTC medication for relief. Denies SOB, or CP. No prior h/o Blood Clots. Pt asking for Podiatry referral for his Toe Nail care. [facility] Medical History (Updated 04/08/25 @ 08:15 by Cinda Swartz NP) Onychomycosis Neuropathic pain of both feet Asthma Elevated cholesterol GERD (gastroesophageal reflux disease) Reactive airway disease Surgical History H/O excision of mass (12/16/24) Hx of umbilical hernia repair (12/16/24) Family History Father Heart attack Mother Colon cancer, Onset Age: 70 Son No problems noted. Brother Heart attack Other AA (alcohol abuse) Mental health disorder Substance use disorder Social History Housing: Other Housing Other:: In between homes Are you a primary respiratory care practitioner to a significant other at home: No Do you presently have visiting nurse or other home services: No Alcohol intake: former Comment: 2x a week 3 nips Patient Tobacco Use Status: Current everyday Tobacco user Tobacco use type: Cigarette Cigarette Packs Per Day: 0.5 Cigarettes Per Day: 10 Years Smoked: pack a day since 13 (asked 11/2023) e-Cigarette/Vaping Use: Never Used Second Hand Smoke Exposure: Yes service: No Current occupational status: disabled Current occupational exposures/hazards: No Cognitive needs: No Hearing needs: No Vision needs: Yes Questionnaire PHQ-9 Over the last 2 weeks, how often have you been bothered by any of the following problems? 1. Little interest or pleasure in doing things: not at all 2. Feeling down, depressed, or hopeless: not at all 3. Trouble falling or staying asleep, or sleeping too much: not at all 4. Feeling tired or having little energy: not at all 5. Poor appetite or overeating: not at all 6. Feeling bad about yourself - or that you are a failure or have let yourself or your family down: not at all 7. Trouble concentrating on things, such as reading the newspaper or watching television: nearly every day 8. Moving or speaking so slowly that other people could have noticed. Or the opposite - being so fidgety or restless that you have been moving around a lot more than usual: not at all 9. Thoughts that you would be better off or of hurting yourself in some way: not at all Total score: 3 Source: Developed by Drs. Parish Conklin, Renae Montejo, Tyler Newman and colleagues, with an educational nani from [employer]. Thrive Questionnaire Date Thrive assessed: 09/01/24 I am a: Patient What is your living situation today?: I have a steady place to live Within the past 12 months, did the food you bought not last and you didn't have the money to get more?: Often true Within the past 12 months, did you worry whether your food would run out before you got money to buy more?: Often true Do you have trouble paying for medicines?: No Do you have trouble getting transportation to medical appointments?: No Do you have trouble paying your heating and electricity bill?: No Do you have trouble taking care of your child, family member or friend?: No Do you have trouble with day-to-day activities such as bathing, preparing meals, shopping, managing finances, etc.?: No Are you currently unemployed and looking for a job?: No Are you interested in more education?: No Please select the resources that you would like help with: Food and Utilities Currently or been in a relationship where the following occur: No concerns reported THRIVE Score: 2 AUDIT C Alcohol Use Questionnaire (AUDIT-C) 1. How often do you have a drink containing alcohol?: Never 3. How often do you have six or more drinks on one occasion?: Never Total Score: 0 DENNYS-7 AMB Questionnaire DENNYS-7 Date DENNYS - 7 assessed: 09/01/24 Feeling nervous, anxious, or on edge: 2 = More than half the days Not being able to stop or control worryin = More than half the days Worrying too much about different things: 2 = More than half the days Trouble relaxin = Several days Being so restless that it is hard to sit still: 1 = Several days Becoming easily annoyed or irritable: 1 = Several days Feeling afraid as if something awful might happen: 0 = Not at all Total DENNYS-7 score (0-4 normal; 5-9 mild; 10-14 moderate; 15-21 severe): 9 Source: Developed by Drs. Parish Conklin, Renae Montejo, Tyler Newman and colleagues, with an educational nani from [employer]. Review of Systems Const All systems reviewed & are unremarkable except as noted in HPI and below Physical exam (Primary Care) Vital Signs: Last Vital Signs Temp 97.3 F 04/08/25 07:53 Pulse 77 04/08/25 07:53 BP 122/74 04/08/25 07:53 Pulse Ox 97 04/08/25 07:53 Oxygen Delivery Method Room Air 04/08/25 07:53 BMI result Body Mass Index 39.2 Tobacco/Smoking Status: Tobacco use Status Tobacco use date assessed 04/08/25 04/08/25 07:57 Patient Tobacco Use Status Current everyday Tobacco 04/08/25 07:53 Tobacco use type Cigarette 04/08/25 07:53 e-Cigarette/Vaping Use Never Used 04/08/25 07:53 PHQ-9: PHQ-9 Score PHQ-9: Total score 3 04/08/25 08:03 Thrive Assessment: Date of Thrive Assessment Date Thrive assessed 09/01/24 04/08/25 07:53 Currently or been in a relationship where the following occur: No concerns reported Const General: no acute distress Nutritional Appearance: obese Orientation/consciousness: patient oriented x3 Resp Effort & Inspection: normal respiratory effort Cardio Heart sounds: S1 normal heart sound present and S2 normal heart sound present Skin Nails: yellow and thickened (B/L Feet) Neuro General: patient oriented x3, gait normal and moves all extremities Extrem Right lower extremity: full ROM, lower leg Details: tenderness and non-pitting edema Details: 1+; no erythema and foot Details: normal capillary refill, tenderness Location: of the dorsal foot and of the plantar foot and edema (Trace ); no crepitus Left lower extremity: full ROM and lower leg Details: tenderness and pitting edema Details: 1+; no erythema and no crepitus Psych Speech and movement: Normal speech and movement present Coding Level of Care Code Est Pt Level 4 (13416) Diagnoses Animal bite T14.8XXA Neuropathic pain of both feet G57.93 Onychomycosis B35.1 Time Spent (min) 20 Assessment & Plan Assessment & Plan (1) Animal bite: Code(s): T14.8XXA - Other injury of unspecified body region, initial encounter Category: Medical Plan: Resolved,wound has healed well. Continue with Rabies Shot (2) Neuropathic pain of both feet: Code(s): G57.93 - Unspecified mononeuropathy of bilateral lower limbs Category: Medical Plan: Ordered Diclofenac for pain relief Ordered Furosemide for 7 days. He does have Trace Edema on both L/E Placed referral to Podiatry (3) Onychomycosis: Code(s): B35.1 - Tinea unguium Category: Medical Plan: Placed referral to Podiatry. Orders: Referrals Podiatry Referral B35.1 - Tinea unguium Medications: New furosemide (Lasix) 20 mg PO DAILY 7 tabs 0RF G57.93 - Unspecified mononeuropathy of bilateral lower limbs diclofenac potassium 50 mg PO BID 14 tabs 0RF 7 days G57.93 - Unspecified mononeuropathy of bilateral lower limbs
== END 2025-04-08 08:10 | disposition home or self-care (01) ==
LOC: HO.HMCH 07:46
PROVIDERS: Visit Provider Nurse Practitioner Family
DX: G57.93 Unspecified mononeuropathy of bilateral lower limbs (principal); B35.1 Tinea unguium; T14.8XXA Other injury of unspecified body region, initial encounter

== ENCOUNTER → 2025-04-08 07:46 | Outpatient (BNVA) | payer MEDICARE, MEDICAID, SELFPAY | PROVIDERS: Visit Provider Nurse Practitioner Family | DX: M79.662 Pain in left lower leg (principal); M79.661 Pain in right lower leg; G57.93 Unspecified mononeuropathy of bilateral lower limbs; B35.1 Tinea unguium; S61.259A Open bite of unspecified finger without damage to nail, initial encounter; W64.XXXA Exposure to other animate mechanical forces, initial encounter; Y93.9 Activity, unspecified; Y92.9 Unspecified place or not applicable; Y99.8 Other external cause status | CPT/HCPCS: 99212 ==

== ENCOUNTER 2025-04-14 09:00 | Outpatient (RCR) | payer MEDICARE, MEDICAID, SELFPAY ==
[2025-04-04 14:56] VITALS: BP 125/83; PULSE 70; RESP 16; TEMP 37.3; O2SAT 99
[2025-04-04] MEDS: Rabies Vaccine (PCEC)/PF 1 ML VIAL IM (15:03)
[2025-04-08 12:47] VITALS: BP 121/63; PULSE 87; RESP 16; TEMP 36.9; O2SAT 98
[2025-04-08] MEDS: Rabies Vaccine (PCEC)/PF 1 ML VIAL IM (12:49)
[2025-04-14 09:06] VITALS: BP 121/75; PULSE 67; RESP 16; TEMP 36.1; O2SAT 100
[2025-04-14] MEDS: Rabies Vaccine (PCEC)/PF 1 ML VIAL IM (09:07)
== END 2025-04-14 09:11 | disposition home or self-care (01) ==
LOC: HO.INF 09:00
PROVIDERS: Visit Provider Nurse Practitioner Family
DX: Z20.3 Contact with and (suspected) exposure to rabies (principal); T14.8XXD Other injury of unspecified body region, subsequent encounter; W64.XXXD Exposure to other animate mechanical forces, subsequent encounter
CPT/HCPCS: 90471; 90675

== ENCOUNTER 2025-04-26 12:28 | Outpatient (AMB) | payer MEDICARE, MEDICAID, SELFPAY ==
--- NOTE | 2025-04-26 12:36 | MHC.OFFVIS ---
Vital Signs 04/26/25 12:37 Height 5 ft 7 in Weight 240 lb BMI 37.6 Intake Visit Reasons: New Pt- Bilateral Tinea Unguium Intake Note: Ramón is a 40 year old male who presents today as a new patient for an evaluation of Bilateral Tinea unguium. He mentions he has not tried OTC treatment. Patient reports toe nail seems to be growing inward and a possible bunnion on the left pinky toe. Left Foot pain has been going for about 3 months. Allergies pea pods Allergy (Uncoded 04/08/25 07:56) Anaphylaxis HPI Comments Details: The patient is a 40-year-old male with a past medical history as seen below who was accompanied by his spouse. He presents with foot pain associated with a tailor's bunion and callus formation. The pain is localized around the pinky toe and feels like the toes are in a vice telephoto engineer, exacerbated by walking and driving. The callus has been present for some time, and the patient finds temporary relief by peeling it off, although it recurs. The patient also reports an ingrown toenail on the left big toe, which is not currently ingrown but has changed shape due to pressure from the bunion and footwear. The patient wears three different pairs of shoes, including work boots, which may contribute to the condition. Additionally, the patient has a fungal nail infection on the right big toe, which has been present for approximately three months. The patient admits to not allowing the feet to air out, which may have contributed to the fungal infection. He denies any recent injuries. He denies any other pedal concerns. Patient was seen wearing sneakers today. [facility] Medical History (Updated 04/26/25 @ 13:05 by Concha Schmitt DPM) Pain in left foot Cellulitis of toe of left foot Ingrowing left great toenail Callus of foot Other specified epidermal thickening Pain of right foot Onychogryphosis Onychomycosis of right great toe Onychomycosis Neuropathic pain of both feet Asthma Elevated cholesterol GERD (gastroesophageal reflux disease) Reactive airway disease Surgical History H/O excision of mass (12/16/24) Hx of umbilical hernia repair (12/16/24) Family History Father Heart attack Mother Colon cancer, Onset Age: 70 Son No problems noted. Brother Heart attack Other AA (alcohol abuse) Mental health disorder Substance use disorder Social History Housing: Other Housing Other:: In between homes Are you a primary home health care respiratory therapist to a significant other at home: No Do you presently have visiting nurse or other home services: No Alcohol intake: former Comment: 2x a week 3 nips Patient Tobacco Use Status: Current everyday Tobacco user Tobacco use type: Cigarette Cigarette Packs Per Day: 0.5 Cigarettes Per Day: 10 Years Smoked: pack a day since 13 (asked 11/2023) e-Cigarette/Vaping Use: Never Used Second Hand Smoke Exposure: Yes service: No Current occupational status: disabled Current occupational exposures/hazards: No Cognitive needs: No Hearing needs: No Vision needs: Yes Review of Systems Const Details: - Musculoskeletal: Reports foot pain localized around the pinky toe, exacerbated by walking and driving. - Dermatological: Reports callus formation on bilateral feet, with temporary relief upon peeling. - Nail: Reports ingrown toenail on the left big toe medial border and fungal infection on the right big toe. All systems reviewed & are unremarkable except as noted in HPI and below Physical Exam Vital Signs: BMI result Body Mass Index 37.6 Extrem Other: Bilateral lower extremity focused physical exam: Derm: Hyperkeratotic lesion noted to the lateral aspect of the left 5th toe at the area of the IPJ and the medial aspect of the right hallux in the lateral of the IPJ. Dystrophic and thickened toenail noted to the right hallux with subungual debris, ingrown medial border nail noted to the left hallux with mild edema. Slightly thickened nails noted to remaining toes. No purulence or drainage noted. No erythema noted. Vascular: DP/PT pulses palpable. Capillary refill time less than 3 seconds x10. No varicosities noted. Neuro: Protective sensation is grossly intact. - Musculoskeletal: Mild tailor's bunion noted to the left 5th toe. Pain on palpation to the hyperkeratotic lesions, worse to the left 5th toe. Pain on palpation to the medial border of the left hallucal nail in the area of the ingrown. Range of motion of the forefoot and hindfoot within normal limits. MMT 5/5. No gait abnormalities noted. Ankle/foot/toe images:  1. 2. 3. 4. Office Procedures AMB Debridement/Avulsion Podia Details: Procedure:Left hallux partial nail avulsion of the medial border Cleansed left hallux with alcohol swab and injected 10cc of 1%lidocaine plain in a hallux block fashion. Next applied a tourniquet to the left hallux and then cleansed the left hallux with Betadine. Attention was drawn to the medial border of the left hallux and a [place] was utilized to free the offending nail border from the nail bed. Next an Portuguese anvil was utilized to trim and cut the offending nail border and a hemostat was used to remove the offending nail border completely. Triple antibiotic ointment, a Band-Aid, and Coban was then applied to the left hallux. Procedure was done with no incidents. Provided patient with aftercare instructions. 21470-Hrztouheksb of Callus (2-4) (B/L: Left 5th toe & right hallux) 45268 Partial/Total nail avulsion (1 nail) (Left hallux medial border) Procedure code (CPT) selection complete Office Meds lidocaine HCl 10 mg/mL (1 %) injection solution Performing Provider: Concha Schmitt DPM Performing Location: [facility] [place] [facility] Administered by: Concha Schmitt DPM on 04/26/25 14:22 Dose Route Admin Location Dispensed Lot Number Expiration Date [facility] [employer] Coater 10 mL subcut 10 mL 5589-3593-54 HOSPIRA/PFIZER Total Dispensed Waste 10 mL 0 % Triple Antibiotic 3.5 mg-400 unit-5,000 unit topical ointment packet Performing Provider: Concha Schmitt DPM Performing Location: [facility] [place] [facility] Administered by: Concha Schmitt DPM on 04/26/25 14:22 Dose Route Admin Location Dispensed Lot Number Expiration Date [facility] [employer] 1 appl topical 1 appl 50656-764-91 PADAGIS povidone-iodine 10 % topical swab Performing Provider: Concha Schmitt DPM Performing Location: [facility] [place] [facility] Administered by: Concha Schmitt DPM on 04/26/25 14:22 Dose Route Admin Location Dispensed Lot Number Expiration Date [facility] [employer] 1 appl topical 1 appl 06217-997-23 [place]. ethyl chloride 100 % topical spray Performing Provider: Concha Schmitt DPM Performing Location: [facility] [place] [facility] Administered by: Concha Schmitt DPM on 04/26/25 14:22 Dose Route Admin Location Dispensed Lot Number Expiration Date [facility] [employer] 3 appl topical 116 mL [id number] [employer] Assessment & Plan Assessment & Plan (1) Onychomycosis of right great toe: Code(s): B35.1 - Tinea unguium Category: Medical (2) Onychogryphosis: Code(s): L60.2 - Onychogryphosis Category: Medical (3) Pain of right foot: Code(s): M79.671 - Pain in right foot Category: Medical (4) Other specified epidermal thickening: Code(s): L85.8 - Other specified epidermal thickening Category: Medical (5) Callus of foot: Code(s): L84 - Corns and callosities Category: Medical (6) Ingrowing left great toenail: Code(s): L60.0 - Ingrowing nail Category: Medical (7) Cellulitis of toe of left foot: Code(s): L03.032 - Cellulitis of left toe Category: Medical (8) Pain in left foot: Code(s): M79.672 - Pain in left foot Category: Medical Plan Patient was informed and verbally consented to the use of an ambient scribe for clinic note documentation during this visit. 1. Tailor's Bunion The plan for the tailor's bunion includes conservative management with padding and wearing wider shoes to alleviate friction and rubbing. Surgical intervention was discussed as a future option if conservative measures fail. 2. Callus Formation The calluses were debrided using a #15 blade during the visit, with recommendations to use a callus pad to prevent recurrence. The patient was advised to apply a cream or Vaseline to keep the area soft and reduce friction. 3. Ingrown Toenail A partial nail avulsion to the left hallux medial border was performed. The patient will be instructed to keep the bandage on for 24 hours and then soak the toe in Epsom salt and warm water. After care instructions/form were provided. 4. Fungal Nail The fungal nail on the right hallux will be managed by complete nail avulsion. Patient opted for the TNA to be done at next follow up appointment. The patient was informed that it would take 9 months to a year for the nail to grow back to its full length. Patient is to return to the office in 2 weeks for re-evaluation of left hallux partial nail avulsion and for a total nail avulsion of the right hallux to be performed. Advised patient if any adverse events occur to call our office or go to the ED. Orders: Orders AMB Debridement/Avulsion Podiatry Today L03.032 - Cellulitis of left toe, L60.0 - Ingrowing nail, L84 - Corns and callosities, L85.8 - Other specified epidermal thickening, M79.672 - Pain in left foot Coding Level of Care Code New Pt Level 4 (74901) Diagnoses Onychomycosis of right great toe B35.1 Onychogryphosis L60.2 Pain of right foot M79.671 Other specified epidermal thickening L85.8 Callus of foot L84 Ingrowing left great toenail L60.0 Cellulitis of toe of left foot L03.032 Pain in left foot M79.672 CPT Codes Skin Debridement - CPT: 44058-Exklieqoebr of Callus (2-4) ([id number]) Skin Debridement - CPT: 60033 Partial/Total nail avulsion (1 nail) ([id number]) Time Spent (min) 60
[2025-04-26 12:37] VITALS: BMI 37.6
== END 2025-04-26 13:56 | disposition home or self-care (01) ==
LOC: HO.HPODS 12:28
PROVIDERS: Visit Provider Student in an Organized Health Care Education/Training Program
DX: B35.1 Tinea unguium (principal); L60.2 Onychogryphosis; M79.671 Pain in right foot; L85.8 Other specified epidermal thickening; L84 Corns and callosities; L60.0 Ingrowing nail; L03.032 Cellulitis of left toe; M79.672 Pain in left foot
CPT/HCPCS: 11056; 11730; 99204

== ENCOUNTER → 2025-04-26 12:28 | Outpatient (BNVA) | payer MEDICARE, MEDICAID, SELFPAY | PROVIDERS: Visit Provider Student in an Organized Health Care Education/Training Program | DX: B35.1 Tinea unguium (principal); L60.2 Onychogryphosis; M79.671 Pain in right foot; L85.8 Other specified epidermal thickening; L84 Corns and callosities; L60.0 Ingrowing nail; L03.032 Cellulitis of left toe; M79.672 Pain in left foot | CPT/HCPCS: 11056; 11730; 99202; J2003 ==

== ENCOUNTER 2025-05-10 09:16 | Outpatient (AMB) | payer MEDICARE, MEDICAID, SELFPAY ==
--- NOTE | 2025-05-10 09:18 | MHC.OFFVIS ---
Intake Visit Reasons: Follow Up Bilateral Tinea Unguium Intake Note: Ramón is a 40 year old male who presents today for a follow up on his bilateral Tinea Unguium. He was seen in office on 04/26/25 where a left hallux partial nail avulsion was performed. Patient reports after the nail avulsion his left great toe has improved although he notices on the lateral a ingrown is growing. He states he in interested in getting a nail avulsion on his right great toe. Allergies pea pods Allergy (Uncoded 04/08/25 07:56) Anaphylaxis HPI Comments Details: The patient is a 40-year-old male presenting for a follow-up of a left hallux partial nail avulsion medial border and right hallux detachment of the toenail. He reports that the toenail is starting to grow in on the lateral side, causing discomfort as it penetrates the skin. The patient denies any presence of pus. He maintains regular cleaning and bandaging of the affected medial area. He states since the procedure his symptoms have resolved on the medial aspect of the left hallux. He denies any new inciting injuries. He denies any other pedal concerns. He denies any current nausea, vomiting, fever, or chills. [facility] Medical History (Updated 05/10/25 @ 10:01 by Concha Schmitt DPM) Nail dystrophy Onycholysis Pain in left foot Cellulitis of toe of left foot Ingrowing left great toenail Callus of foot Other specified epidermal thickening Pain of right foot Onychogryphosis Onychomycosis of right great toe Onychomycosis Neuropathic pain of both feet Asthma Elevated cholesterol GERD (gastroesophageal reflux disease) Reactive airway disease Surgical History H/O excision of mass (12/16/24) Hx of umbilical hernia repair (12/16/24) Family History Father Heart attack Mother Colon cancer, Onset Age: 70 Son No problems noted. Brother Heart attack Other AA (alcohol abuse) Mental health disorder Substance use disorder Social History Housing: Other Housing Other:: In between homes Are you a primary social worker palliative care to a significant other at home: No Do you presently have visiting nurse or other home services: No Alcohol intake: former Comment: 2x a week 3 nips Patient Tobacco Use Status: Current everyday Tobacco user Tobacco use type: Cigarette Cigarette Packs Per Day: 0.5 Cigarettes Per Day: 10 Years Smoked: pack a day since 13 (asked 11/2023) e-Cigarette/Vaping Use: Never Used Second Hand Smoke Exposure: Yes service: No Current occupational status: disabled Current occupational exposures/hazards: No Cognitive needs: No Hearing needs: No Vision needs: Yes Review of Systems Const Details: Healed partial nail avulsion site to the medial border of the left hallux. Reports mild pain to the right hallucal nail and mild pain to the lateral border of the left hallucal nail. All systems reviewed & are unremarkable except as noted in HPI and below Physical Exam Extrem Other: Bilateral lower extremity focused physical exam: Derm: Dystrophic, thickened, discolored, and partially detached toenail noted to the right hallux with subungual debris. Healed PNA site to the medial nail border of the left hallucal nail. Slight incurvation noted to the lateral border of the left hallucal nail. Slightly thickened nails noted to remaining toes. No purulence or drainage noted. No erythema noted. No clinical signs of infection. Vascular: DP/PT pulses palpable. Capillary refill time less than 3 seconds x10. No varicosities noted. Pedal hair present. No edema noted. No varicosities noted. Neuro: Protective sensation is grossly intact. Musculoskeletal: Mild tailor's bunion noted to the left 5th toe. Mild pain on palpation to the right hallucal toenail. Mild pain on palpation to the lateral border of the left hallucal nail in the area of the ingrown, no pain to the medial border (site of PNA). Range of motion of the forefoot and hindfoot within normal limits. MMT 5/5. No gait abnormalities noted. Office Procedures AMB Debridement/Avulsion Podia Details: Procedure: Right hallux total nail avulsion Cleansed right hallux with alcohol swab and injected 10cc of 1%lidocaine plain in a hallux block fashion. Next applied a tourniquet to the right hallux and then cleansed the right hallux with Betadine. Attention was drawn to the partially detached right hallucal nail and a [place] was utilized to free the offending nail from the nail bed and nail matrix. Next using a hemostat, the offending nail was removed completely. Upon removal of the nails significant subungual debris was noted. A curette was used to remove some subungual debris noted. Next, Triple antibiotic ointment, 2x2 gauze, and Coban was then applied to the right hallux. Procedure was done with no incidents. Provided patient with aftercare instructions. 64079 Partial/Total nail avulsion (1 nail) Procedure code (CPT) selection complete Office Meds lidocaine HCl 10 mg/mL (1 %) injection solution Performing Provider: Concha Schmitt DPM Performing Location: [facility] [place] [facility] Administered by: Concha Schmitt DPM on 05/10/25 10:09 Dose Route Admin Location Dispensed Lot Number Expiration Date [facility] Department Mgr 10 mL subcut 10 mL [id number] HOSPIRA/PFIZER Total Dispensed Waste 10 mL 0 % Triple Antibiotic 3.5 mg-400 unit-5,000 unit topical ointment packet Performing Provider: Concha Schmitt DPM Performing Location: [facility] [place] [facility] Administered by: Concha Schmitt DPM on 05/10/25 10:09 Dose Route Admin Location Dispensed Lot Number Expiration Date [facility] Department Mgr 1 appl topical 1 appl [id number] PADAGIS povidone-iodine 10 % topical swab Performing Provider: Concha Schmitt DPM Performing Location: [facility] [place] [facility] Administered by: Concha Schmitt DPM on 05/10/25 10:09 Dose Route Admin Location Dispensed Lot Number Expiration Date [facility] Department Mgr 1 appl topical 1 appl [id number] [employer] [place]. ethyl chloride 100 % topical spray Performing Provider: Concha Schmitt DPM Performing Location: [facility] [place] [facility] Administered by: Concha Schmitt DPM on 05/10/25 10:09 Dose Route Admin Location Dispensed Lot Number Expiration Date [facility] Department Mgr 3 appl topical 116 mL [id number] [employer]. Assessment & Plan Assessment & Plan (1) Onychomycosis: Code(s): B35.1 - Tinea unguium Category: Medical (2) Onychogryphosis: Code(s): L60.2 - Onychogryphosis Category: Medical (3) Pain of right foot: Code(s): M79.671 - Pain in right foot Category: Medical (4) Ingrowing left great toenail: Code(s): L60.0 - Ingrowing nail Category: Medical (5) Cellulitis of toe of left foot: Code(s): L03.032 - Cellulitis of left toe Category: Medical (6) Pain in left foot: Code(s): M79.672 - Pain in left foot Category: Medical (7) Onycholysis: Code(s): L60.1 - Onycholysis Category: Medical (8) Nail dystrophy: Code(s): L60.3 - Nail dystrophy Category: Medical Plan Patient was informed and verbally consented to the use of an ambient scribe for clinic note documentation during this visit. I discussed with the patient the need for a total nail avulsion to the right hallux. The benefits of this procedure include reduced pain and prevention of infection. Aftercare was reviewed, highlighting daily soaks in Epsom salt and warm water, application of Neosporin, and use of a protective Band-Aid after 24 hours of the procedure. We also discussed the presence of onychomycosis and the need for future monitoring. Risks associated with the procedure were explained, including infection and pain, although these are minimized with proper technique and aftercare. The patient was agreeable to the proposed plan and instructions. Performed the total nail avulsion to the right hallux with no incidents. We will continue to monitor the lateral border of the left hallucal nail. Patient patient states he would like to wait to perform any procedures to the left hallucal nail. Recommend continued routine nail care. Patient is to follow-up in 2 weeks for re-evaluation of total nail avulsion to the right hallux and for possible partial of the lateral border of the left hallux. Orders: Orders AMB Debridement/Avulsion Podiatry Today B35.1 - Tinea unguium, L60.1 - Onycholysis, L60.2 - Onychogryphosis, L60.3 - Nail dystrophy, M79.671 - Pain in right foot Coding Level of Care Code Est Pt Level 4 (85952) Diagnoses Onychomycosis B35.1 Onychogryphosis L60.2 Pain of right foot M79.671 Ingrowing left great toenail L60.0 Cellulitis of toe of left foot L03.032 Pain in left foot M79.672 Onycholysis L60.1 Nail dystrophy L60.3 CPT Codes Skin Debridement - CPT: 92883 Partial/Total nail avulsion (1 nail) ([id number]) Time Spent (min) 55
== END 2025-05-10 10:05 | disposition home or self-care (01) ==
LOC: HO.HPODS 09:16
PROVIDERS: PCP Internal Medicine; Visit Provider Student in an Organized Health Care Education/Training Program
DX: B35.1 Tinea unguium (principal); L60.2 Onychogryphosis; M79.671 Pain in right foot; L60.0 Ingrowing nail; L03.032 Cellulitis of left toe; M79.672 Pain in left foot; L60.1 Onycholysis; L60.3 Nail dystrophy
CPT/HCPCS: 11730; 99213

== ENCOUNTER → 2025-05-10 09:16 | Outpatient (BNVA) | payer MEDICARE, MEDICAID, SELFPAY | PROVIDERS: PCP Internal Medicine; Visit Provider Student in an Organized Health Care Education/Training Program | DX: B35.1 Tinea unguium (principal); L60.2 Onychogryphosis; L60.0 Ingrowing nail; L03.032 Cellulitis of left toe; L30.1 Dyshidrosis [pompholyx]; L60.3 Nail dystrophy; M79.672 Pain in left foot; M79.671 Pain in right foot | CPT/HCPCS: 11730; 99212; J2003 ==

== ENCOUNTER 2025-05-24 16:14 | Outpatient (AMB) | payer MEDICARE, MEDICAID, SELFPAY ==
[2025-05-24 16:16] VITALS: BP 128/70; PULSE 65; TEMP 36.4; O2SAT 97; BMI 39.0
--- NOTE | 2025-05-24 16:16 | MHC.PC.OV ---
Vital Signs 05/24/25 16:16 Height 5 ft 7 in Weight 249 lb 4 oz BMI 39.0 BP 128/70 Blood Pressure Location Lt brachial Position Sitting Pulse 65 Pulse Source Pulse Oximeter Temp 97.5 F Temp Source Temporal Artery Scan Pulse Oximetry (%) 97 Oxygen Delivery Method Room Air Intake Visit Reasons: Annual Exam Allergies pea pods Allergy (Uncoded 05/24/25 16:20) Anaphylaxis Medication List - Last Reconciled 05/24/25 by Beatriz Gtz MD No Known Home Meds Tobacco use date assessed: 05/24/25 Dental Screening Dental Screen Date: 05/24/25 Did you have a dental visit in the last 12 months?: Yes Did you have a dental problem in the last 6 months where you did not have access to dental care?: No Was dental information given to patient?: Patient has dentist [facility] Medical History Nail dystrophy Onycholysis Pain in left foot Cellulitis of toe of left foot Ingrowing left great toenail Callus of foot Other specified epidermal thickening Pain of right foot Onychogryphosis Onychomycosis of right great toe Onychomycosis Neuropathic pain of both feet Asthma Elevated cholesterol GERD (gastroesophageal reflux disease) Reactive airway disease Surgical History H/O excision of mass (12/16/24) Hx of umbilical hernia repair (12/16/24) Family History (Updated 05/24/25 @ 16:59 by Beatriz Gtz MD) Father Heart attack Mother Colon cancer, Onset Age: 70 Son No problems noted. Brother Heart attack Maternal Aunt Breast cancer Other AA (alcohol abuse) Mental health disorder Substance use disorder Social History (Updated 05/24/25 @ 17:01 by Beatriz Gtz MD) Housing: Other Housing Other:: In between homes Are you a primary urgent care to a significant other at home: No Do you presently have visiting nurse or other home services: No Alcohol intake: former Comment: 2x a week 3 nips Patient Tobacco Use Status: Current everyday Tobacco user Tobacco use type: Cigarette Cigarette Packs Per Day: 1 Cigarettes Per Day: 20 Years Smoked: pack a day since 13 (asked 11/2023) marijuana e-Cigarette/Vaping Use: Never Used Second Hand Smoke Exposure: Yes service: No Current occupational status: disabled Current occupational exposures/hazards: No Cognitive needs: No Hearing needs: No Vision needs: Yes Questionnaire PHQ-9 Over the last 2 weeks, how often have you been bothered by any of the following problems? 1. Little interest or pleasure in doing things: not at all 2. Feeling down, depressed, or hopeless: not at all 3. Trouble falling or staying asleep, or sleeping too much: not at all 4. Feeling tired or having little energy: not at all 5. Poor appetite or overeating: not at all 6. Feeling bad about yourself - or that you are a failure or have let yourself or your family down: not at all 7. Trouble concentrating on things, such as reading the newspaper or watching television: nearly every day 8. Moving or speaking so slowly that other people could have noticed. Or the opposite - being so fidgety or restless that you have been moving around a lot more than usual: not at all 9. Thoughts that you would be better off or of hurting yourself in some way: not at all Total score: 3 Source: Developed by Drs. Parish Conklin, Renae Montejo, Tyler Newman and colleagues, with an educational nani from [employer]. Thrive Questionnaire Date Thrive assessed: 04/08/25 I am a: Patient What is your living situation today?: I have a steady place to live Within the past 12 months, did the food you bought not last and you didn't have the money to get more?: Often true Within the past 12 months, did you worry whether your food would run out before you got money to buy more?: Often true Do you have trouble paying for medicines?: No Do you have trouble getting transportation to medical appointments?: No Do you have trouble paying your heating and electricity bill?: No Do you have trouble taking care of your child, family member or friend?: No Do you have trouble with day-to-day activities such as bathing, preparing meals, shopping, managing finances, etc.?: No Are you currently unemployed and looking for a job?: No Are you interested in more education?: No Currently or been in a relationship where the following occur: No concerns reported THRIVE Score: 2 AUDIT C Alcohol Use Questionnaire (AUDIT-C) 1. How often do you have a drink containing alcohol?: Never 3. How often do you have six or more drinks on one occasion?: Never Total Score: 0 DENNYS-7 AMB Questionnaire DENNYS-7 Date DENNYS - 7 assessed: 09/01/24 Feeling nervous, anxious, or on edge: 2 = More than half the days Not being able to stop or control worryin = More than half the days Worrying too much about different things: 2 = More than half the days Trouble relaxin = Several days Being so restless that it is hard to sit still: 1 = Several days Becoming easily annoyed or irritable: 1 = Several days Feeling afraid as if something awful might happen: 0 = Not at all Total DENNYS-7 score (0-4 normal; 5-9 mild; 10-14 moderate; 15-21 severe): 9 Source: Developed by Drs. Parish Conklin, Renae Montejo, Tyler Newman and colleagues, with an educational nani from [employer]. Review of Systems Const Denies poor appetite and Denies weakness Eyes Denies no additional complaints ENT Reports Normal hearing present, Denies dizziness, Denies nasal congestion, Denies tinnitus and Denies sore throat Card Denies chest pain, Denies syncope, Denies rapid heart rate and Denies dyspnea Resp Denies cough and Denies dyspnea GI Denies change in stool character, Reports constipation, Denies diarrhea, Denies nausea and Denies vomiting Denies dysuria and Denies urinary frequency Neuro Reports Normal hearing present, Denies confusion, Denies dizziness, Denies syncope and Denies weakness Psych Denies confusion Physical exam (Primary Care) Vital Signs: Last Vital Signs Temp 97.5 F 05/24/25 16:16 Pulse 65 05/24/25 16:16 BP 128/70 05/24/25 16:16 Pulse Ox 97 05/24/25 16:16 Oxygen Delivery Method Room Air 05/24/25 16:16 BMI result Body Mass Index 39.0 Tobacco/Smoking Status: Tobacco use Status Tobacco use date assessed 05/24/25 05/24/25 16:21 Patient Tobacco Use Status Current everyday Tobacco 05/24/25 16:21 Tobacco use type Cigarette 05/24/25 16:21 e-Cigarette/Vaping Use Never Used 05/24/25 16:21 PHQ-9: PHQ-9 Score PHQ-9: Total score 3 05/24/25 16:21 Thrive Assessment: Date of Thrive Assessment Date Thrive assessed 04/08/25 05/24/25 16:21 Currently or been in a relationship where the following occur: No concerns reported Const General: No confusion Orientation/consciousness: No confusion HENMT Head: Yes normocephalic Ears: external ears normal and TM's normal bilaterally Face and sinus: Yes normal facial exam Mouth: moist mucous membranes Throat: Yes tonsils normal Eyes Conjunctivae: conjunctivae normal Pupils: Equal, round and reactive pupils present and Pupil accommodation reflex normal Direct Ophthalmoscopy: normal light reflex Neck Neck: No lymphadenopathy Thyroid: Thyroid normal Chest Chest palpation & inspection: normal inspection of the chest Resp Effort & Inspection: normal respiratory effort and no audible wheezes Auscultation: clear to auscultation bilaterally, no crackles, no wheezes and lung sounds not diminished Cardio Rate: regular rate Rhythm: regular rhythm Peripheral pulses: radial pulses present and dorsalis pedis present GI Other: Declined Palpation (GI): no masses Auscultation: normal bowel sounds and normoactive bowel sounds Rectal Exam - Male: Yes deferred Other: Declined Skin General skin exam: no rashes or lesions noted Rashes: no rashes Neuro General: No confusion Cranial nerves: Yes Equal, round and reactive pupils present and Yes Normal hearing present Cognition (Neuro): normal cognition Gait exam (Neuro): Normal gait present Motor exam (neuro): 5/5 motor strength present throughout Deep tendon reflexes (DTR's): Right brachioradialis reflex intensity grade: 2+, Left brachioradialis reflex intensity grade: 2+, Right patellar reflex intensity grade: 2+ and Left patellar reflex intensity grade: 2+ Extrem Other: Plus one edema on both lower extremities General: Yes edema Office Procedures Flu Questionnaire Does the patient have a severe egg allergy?: No Does the patient have severe life threatening allergies?: No Does the patient have a fever or illness today?: No Has the patient ever had Guillain-[place] Syndrome?: No Has the patient ever had any past reaction to a flu shot?: No Immunizations Fluarix [id number] (PF) 45 mcg (15 mcg x 3)/0.5 mL IM syringe Performing Provider: Beatriz Gtz MD Performing Location: [facility] [place] [facility] Administered by: Cierra Melo CMA on 05/24/25 16:26 Dose Route Admin Location Dispensed Lot Number Expiration Date NDC Graphotype Operator 0.5 mL IM Left Deltoid 0.5 mL [id number] 02/14/26 [id number] [employer] VIS Given Date VIS Provided VIS Publication Date 05/24/25 Single Vaccine 24 Eligibility Eligibility Date Funding Source Not [facility] Eligible 05/24/25 Private Coding Level of Care Code Est Pt Prev Care 40-64y(71218) Diagnoses Annual physical exam Z00.00 Tobacco abuse Z72.0 GERD (gastroesophageal reflux disease) K21.9 Umbilical hernia K42.9 Obesity (BMI 30-39.9) E66.9 Leg swelling M79.89 Assessment & Plan Assessment & Plan (1) Annual physical exam: Code(s): Z00.00 - Encounter for general adult medical examination without abnormal findings Category: Medical Plan: Patient is advised to eat healthy, keep well hydrated, keep active and have adequate sleep. (2) Tobacco abuse: Code(s): Z72.0 - Tobacco use Category: Medical Plan: Patient is strongly advised to stop smoking! (3) GERD (gastroesophageal reflux disease): Code(s): K21.9 - Gastro-esophageal reflux disease without esophagitis Category: Medical Plan: Patient is advised strongly to stop smoking! Avoid the foods that causes that usually spicy foods, tomato products, juices, coffee, soda and foods that your sensitive to. After eating do not lie down, allow 3-4 hours before in lie down. And keep the head of bed above 30 degrees to avoid the acid from going up. (4) Umbilical hernia: Comment: Umbilical hernia repair 2024 Code(s): K42.9 - Umbilical hernia without obstruction or gangrene Category: Surgical Plan: Status post repair. (5) Obesity (BMI 30-39.9): Code(s): E66.9 - Obesity, unspecified Category: Medical Plan: Diet and exercise (6) Leg swelling: Code(s): M79.89 - Other specified soft tissue disorders Category: Medical Plan History of Present Illness The patient is a 40-year-old male presenting for a physical examination and follow-up on multiple chronic conditions. He has a history of obesity with a recent weight gain of 9 pounds since April, although his weight was stable in March. His medical history includes hypercholesterolemia, renal insufficiency, and gastroesophageal reflux disease (GERD). The patient also has rheumatoid arthritis and a history of an abdominal wall hernia, which has been surgically repaired. He follows up with podiatry for an ingrown toenail and was last seen in November for an ear infection, which has since resolved. The patient experienced an animal bite, for which he received rabies vaccinations. He is a smoker, consuming about a pack of cigarettes a day, and also uses marijuana daily. He has a family history of heart attack and colon cancer. Health Maintenance - Rabies vaccination post animal bite - Smoking cessation strongly advised - Discussion on reducing soda intake and increasing water consumption - Advised to consider lung cancer screening due to smoking history Social History - Substance use: Smokes about a pack of cigarettes daily and uses marijuana daily. - Dietary habits: High soda intake, low water consumption. - Family history: Heart attack and colon cancer in family. Review of Systems - General: Reports weight gain of 9 pounds since April. Denies fatigue. - Cardiovascular: Denies chest pain, palpitations, or syncope. - Respiratory: Denies dyspnea or cough. - Gastrointestinal: Reports occasional heartburn depending on diet. Denies nausea, vomiting, or dysphagia. - Genitourinary: Denies dysuria or frequency. Reports nocturia once per night. - Musculoskeletal: Reports leg swelling and pain on walking. - Neurological: Denies dizziness or headaches. Physical Exam General: Cooperative, healthy appearing, comfortable, no acute distress and well developed Orientation: Patient oriented x3 Limitations: No limitations Head: Normal to inspection Ears: Hearing grossly normal bilaterally Nose: Normal external nose present Face and sinus: Normal facial exam Eyes: Appearance normal, both eyes and all related structures Neck: Normal visual inspection and Yes full ROM Respiratory: Normal respiratory effort and able to speak in complete sentences. Clear to auscultation bilaterally Cardiovascular: Regular rate and rhythm. Normal S1 and S2 GI: Normal to inspection. Soft to palpation and nontender Skin: No rashes or lesions noted Neuro: Patient oriented x3 Extremities: +1 edema on both lower extremities Results - Labs: Normal blood count, electrolytes, renal function (1.15), sugar, liver function, cholesterol, B12, and folic acid as of last test. Plan Patient was informed and verbally consented to the use of an ambient scribe for clinic note documentation during this visit. 1. Obesity The patient is advised to engage in regular physical activity and dietary modifications to address obesity, with a focus on reducing soda intake and increasing water consumption. 2. Hypercholesterolemia Continued monitoring of cholesterol levels is recommended, with lifestyle modifications to include dietary changes and increased physical activity. 3. Renal Insufficiency Renal function will be monitored, and the patient is advised to undergo blood work to assess current renal status. 4. Gastroesophageal Reflux Disease (Gerd) The patient is advised to avoid foods that trigger reflux symptoms and to consider lifestyle modifications to manage GERD. 5. Rheumatoid Arthritis The patient is advised to continue current management for rheumatoid arthritis and to report any changes in symptoms. 6. Smoking The patient is strongly advised to cease smoking, with a discussion on the risks associated with continued smoking, including lung cancer. 7. Marijuana Use The patient is informed about the potential risks of marijuana use, including increased risk for heart attacks and strokes, and is advised to consider alternatives such as edibles. 8. Animal Bite The patient received rabies vaccination following an animal bite, and no further action is required at this time. Discussion Notes During the visit, I discussed with the patient the importance of smoking cessation and the associated health risks, including lung cancer. We also talked about the potential risks of marijuana use, such as increased risk for heart attacks and strokes, and I advised considering alternatives like edibles. The patient was informed about the need for regular physical activity and dietary modifications to manage obesity and hypercholesterolemia. We reviewed the patient's renal function and the importance of monitoring it, given the history of renal insufficiency. I also emphasized the need for avoiding foods that trigger GERD symptoms and maintaining current management for rheumatoid arthritis. The patient was reassured about the rabies vaccination following the animal bite. Patient Instructions - Stop smoking to reduce health risks. - Consider using marijuana edibles instead of smoking. - Engage in regular physical activity and reduce soda intake. - Monitor renal function with upcoming blood work. - Avoid foods that trigger GERD symptoms. Orders: Orders Complete Blood Count Auto Diff Today M79. - Other specified soft tissue disorders Thyroid Stimulating Hormone Today M79.89 - Other specified soft tissue disorders Vitamin B12 and Folate Today M79.89 - Other specified soft tissue disorders UA CC w/rflx Micro + Cult Today M79 - Other specified soft tissue disorders, R30.0 - Dysuria Influenza [id number] Immunization Today Z23 - Encounter for immunization Comprehensive Met. Panel Today M79.89 - Other specified soft tissue disorders Free T4 (Free Thyroxine) Today M79.89 - Other specified soft tissue disorders Lipid Panel Today E78.00 - Pure hypercholesterolemia, unspecified, M79.89 - Other specified soft tissue disorders Hemoglobin A1c Today M79.89 - Other specified soft tissue disorders
== END 2025-05-24 17:32 | disposition home or self-care (01) ==
LOC: HO.HMCH 16:15
PROVIDERS: PCP Internal Medicine; Visit Provider Internal Medicine
DX: Z00.00 Encounter for general adult medical examination without abnormal findings (principal); Z72.0 Tobacco use; E66.9 Obesity, unspecified; Z68.39 Body mass index [BMI] 39.0-39.9, adult; K21.9 Gastro-esophageal reflux disease without esophagitis; K42.9 Umbilical hernia without obstruction or gangrene; M79.89 Other specified soft tissue disorders; Z23 Encounter for immunization

== ENCOUNTER → 2025-05-24 16:14 | Outpatient (BNVA) | payer MEDICARE, MEDICAID, SELFPAY | PROVIDERS: PCP Internal Medicine; Visit Provider Internal Medicine | DX: Z00.00 Encounter for general adult medical examination without abnormal findings (principal); K21.9 Gastro-esophageal reflux disease without esophagitis; K42.9 Umbilical hernia without obstruction or gangrene; E66.9 Obesity, unspecified; M79.89 Other specified soft tissue disorders; E78.00 Pure hypercholesterolemia, unspecified; Z23 Encounter for immunization; Z72.0 Tobacco use | CPT/HCPCS: 90471; 90656; 96127; 99396 ==

== ENCOUNTER 2025-05-27 09:50 | Outpatient (AMB) | payer MEDICARE, MEDICAID, SELFPAY ==
[2025-05-27 09:56] VITALS: BMI 46.0
--- NOTE | 2025-05-27 09:56 | MHC.OFFVIS ---
Vital Signs 05/27/25 09:56 Height 5 ft 7 in Weight 294 lb BMI 46.0 Intake Visit Reasons: follow up TNA on right hallux; & possible PNA to l Intake Note: Ramón is a 40 year old amle who presents today for a follow up on his bilataeral hallux ingrown. At last visit a nail avulsion of the right hallux was performed and patient reports he is doing well and has no complaints of pain at this time. Allergies pea pods Allergy (Uncoded 05/24/25 16:20) Anaphylaxis HPI Comments Details: The patient is a 40-year-old male presenting for follow-up status post right hallux total nail avulsion. The patient states his symptoms have significantly improved he no longer experiences pain. Patient states he has been compliant with aftercare instructions. He states he still notices subungual debris with discoloration of the nail noted. The condition has been progressing with noticeable black and yellow discoloration under the nail, but no associated pain or pus formation. The patient has been maintaining hygiene by washing and cleaning the affected area regularly. He denies any other pedal concerns. He denies any current nausea, vomiting, fever, or chills. [facility] Medical History (Updated 05/27/25 @ 09:58 by Concha Schmitt DPM) Nail disorder Nail dystrophy Onycholysis Pain in left foot Cellulitis of toe of left foot Ingrowing left great toenail Callus of foot Other specified epidermal thickening Pain of right foot Onychogryphosis Onychomycosis of right great toe Onychomycosis Neuropathic pain of both feet Asthma Elevated cholesterol GERD (gastroesophageal reflux disease) Reactive airway disease Surgical History H/O excision of mass (12/16/24) Hx of umbilical hernia repair (12/16/24) Family History (Updated 05/24/25 @ 16:59 by Beatriz Gtz MD) Father Heart attack Mother Colon cancer, Onset Age: 70 Son No problems noted. Brother Heart attack Maternal Aunt Breast cancer Other AA (alcohol abuse) Mental health disorder Substance use disorder Social History (Updated 05/24/25 @ 17:01 by Beatriz Gtz MD) Housing: Other Housing Other:: In between homes Are you a primary care navigator to a significant other at home: No Do you presently have visiting nurse or other home services: No Alcohol intake: former Comment: 2x a week 3 nips Patient Tobacco Use Status: Current everyday Tobacco user Tobacco use type: Cigarette Cigarette Packs Per Day: 1 Cigarettes Per Day: 20 Years Smoked: pack a day since 13 (asked 11/2023) marijuana e-Cigarette/Vaping Use: Never Used Second Hand Smoke Exposure: Yes service: No Current occupational status: disabled Current occupational exposures/hazards: No Cognitive needs: No Hearing needs: No Vision needs: Yes Review of Systems Const Details: Healed total nail avulsion to the right hallux with new nail growth noted to look thickened, dystrophic, and discolored. Healed partial nail avulsion site to the medial border of the left hallux. All systems reviewed & are unremarkable except as noted in HPI and below Physical Exam Vital Signs: BMI result Body Mass Index 46.0 Extrem Other: Bilateral lower extremity focused physical exam: Derm: Healed total nail avulsion site to the right hallux with new nail growth noted to be dystrophic and discolored with subungual debris. Healed PNA site to the medial nail border of the left hallucal nail. Slight incurvation noted to the lateral border of the left hallucal nail. Slightly thickened nails noted to remaining toes. No purulence or drainage noted. No erythema noted. No clinical signs of infection. Vascular: DP/PT pulses palpable. Capillary refill time less than 3 seconds x10. No varicosities noted. Pedal hair present. No edema noted. No varicosities noted. Neuro: Protective sensation is grossly intact. Musculoskeletal: Mild tailor's bunion noted to the left 5th toe. No pain on palpation to the right hallucal toenail (site of TNA). No pain on palpation to the lateral border of the left hallucal nail, no pain to the medial border (site of PNA). Range of motion of the forefoot and hindfoot within normal limits. MMT 5/5. No gait abnormalities noted. Assessment & Plan Assessment & Plan (1) Onychomycosis of right great toe: Code(s): B35.1 - Tinea unguium Category: Medical (2) Nail dystrophy: Code(s): L60.3 - Nail dystrophy Category: Medical (3) Nail disorder: Code(s): L60.9 - Nail disorder, unspecified Category: Medical (4) Onychomycosis: Code(s): B35.1 - Tinea unguium Category: Medical (5) Onychogryphosis: Code(s): L60.2 - Onychogryphosis Category: Medical (6) Pain of right foot: Code(s): M79.671 - Pain in right foot Category: Medical (7) Ingrowing left great toenail: Code(s): L60.0 - Ingrowing nail Category: Medical (8) Cellulitis of toe of left foot: Code(s): L03.032 - Cellulitis of left toe Category: Medical (9) Pain in left foot: Code(s): M79.672 - Pain in left foot Category: Medical (10) Onycholysis: Code(s): L60.1 - Onycholysis Category: Medical Plan Patient was informed and verbally consented to the use of an ambient scribe for clinic note documentation during this visit. I discussed with the patient the use of a topical antifungal solution for the treatment of onychomycosis, emphasizing the importance of applying it only to the nail and avoiding the surrounding skin. I informed the patient that noticeable improvement might take nine months to a year due to the slow growth of nails. The patient was advised to return in one month for a follow-up to evaluate the treatment's progress. - Prescribed Ciclopirox solution for onychomycosis, to be applied directly to the nail, avoiding the skin. - Advised monitoring for any signs of redness or blistering, with instructions to discontinue use and contact the clinic if these occur. - Patient is to keep the feet, socks, and shoes clean and dry. - Patient is to avoid barefoot walking. Patient is to follow-up in 1 month for re-evaluation. Medications: New ciclopirox 8% 1 appl topical BEDTIME 6.6 mL 0RF Onychomycosis 4 weeks B35.1 - Tinea unguium, L60.3 - Nail dystrophy, L60.9 - Nail disorder, unspecified Coding Level of Care Code Est Pt Level 3 (88841) Diagnoses Onychomycosis of right great toe B35.1 Nail dystrophy L60.3 Nail disorder L60.9 Onychomycosis B35.1 Onychogryphosis L60.2 Pain of right foot M79.671 Ingrowing left great toenail L60.0 Cellulitis of toe of left foot L03.032 Pain in left foot M79.672 Onycholysis L60.1 Time Spent (min) 30
== END 2025-05-27 09:59 | disposition home or self-care (01) ==
LOC: HO.HPODS 09:51
PROVIDERS: PCP Internal Medicine; Visit Provider Student in an Organized Health Care Education/Training Program
DX: B35.1 Tinea unguium (principal); L60.3 Nail dystrophy; L60.9 Nail disorder, unspecified; L60.2 Onychogryphosis; M79.671 Pain in right foot; L60.0 Ingrowing nail; L03.032 Cellulitis of left toe; M79.672 Pain in left foot; L60.1 Onycholysis
CPT/HCPCS: 99213

== ENCOUNTER 2025-05-27 09:50 | Outpatient (REF) | payer MEDICARE, MEDICAID, SELFPAY ==
[2025-05-27 11:04] LABS: MANUAL DIFF FLAG NO
[2025-05-27 11:47] LABS: Hematocrit 44.7 % (42.0-52.0); Hemoglobin 15.3 g/dl (14.0-18.0); Imm Gran Abs Auto 0.04 X10*3/uL (0.00-0.03); Imm Gran Pct Auto 0.4 % (0.0-0.4); Lymphocytes Absolute Auto 2.5 X10*3/uL (1.2-4.9); Mean Corpuscular HGB Conc 34.2 g/dl (31.0-36.0); Mean Corpuscular Hemoglobin 31.6 pg (27.0-33.0); Mean Corpuscular Volume 92.4 fL (80.0-98.0); NRBC Abs Auto 0.000 X10*3/uL (0.0-0.012); NRBC Pct Auto 0.0 /100WBC (0.0-0.2); Platelet Count 208 X10*3/uL (160-400); Red Blood Count 4.84 X10*6/uL (4.60-5.80); White Blood Count 9.1 X10*3/uL (4.8-10.8)
[2025-05-27 12:17] LABS: Appearance Urine Clear; Glucose Urine UA Negative (Negative); PH 6.0 (5.0-9.0); Specific Gravity - Urine 1.020 (1.005-1.025)
[2025-05-27 12:34] LABS: Alanine Aminotransferase 38 U/L (0-40); Albumin Level 4.4 g/dL (3.5-5.0); Alkaline Phosphatase 85 U/L (39-117); Anion Gap 11 (12-20); Aspartate Amino Transferase 27 U/L (5-37); Blood Urea Nitrogen 13 mg/dL (9-16); Calcium 8.7 mg/dL (8.4-10.2); Carbon Dioxide 24 mmol/L (22-29); Chloride 110 mmol/L (96-108); Cholesterol 206 mg/dL (<200); Estimated Glomerular Filt Rate > 60; Free T4 (Free Thyroxine) 0.88 ng/dL (0.71-1.85); HDL Cholesterol 37 mg/dL (>40); Potassium 4.3 mmol/L (3.3-5.1); Sodium 141 mmol/L (135-145); Thyroid Stimulating Hormone 1.87 uIU/mL (0.32-4.0); Total Protein 7.1 g/dL (6.5-8.0); Triglycerides 115 mg/dL (<150)
[2025-05-27 12:52] LABS: Folate 5.8 ng/mL (> or = 4.0); Vitamin B12 350 pg/mL (200-900)
== END 2025-05-27 09:51 | disposition home or self-care (01) ==
LOC: HO.LAB 09:50
PROVIDERS: PCP Internal Medicine; Visit Provider Internal Medicine
DX: L03.032 Cellulitis of left toe (principal); B35.1 Tinea unguium; L60.0 Ingrowing nail; L60.1 Onycholysis; L60.2 Onychogryphosis; L60.3 Nail dystrophy; M79.671 Pain in right foot; M79.89 Other specified soft tissue disorders; R30.0 Dysuria; E78.00 Pure hypercholesterolemia, unspecified; M79.672 Pain in left foot; Z13.1 Encounter for screening for diabetes mellitus
CPT/HCPCS: 36415; 80053; 80061; 81003; 82607; 82746; 83036; 84439; 84443; 85025; 99212

== ENCOUNTER 2025-06-23 09:35 | Outpatient (AMB) | payer MEDICARE, MEDICAID, SELFPAY ==
[2025-06-23 09:45] VITALS: BMI 46.0
--- NOTE | 2025-06-23 09:45 | A.OFFVIS_ITS ---
Vital Signs 06/23/25 09:45 Height 5 ft 7 in Weight 294 lb BMI 46.0 Intake Visit Reasons: ollow up TNA on right hallux; & possible PNA to l Intake Note: Ramón is a 40 year old male who presents today for a follow up on his total nail avulsion of the right hallux. Pt states he was unable to start the ciclopirox medication due to insurance coverage. He also states his recovery has been going well Allergies pea pods Allergy (Uncoded 05/24/25 16:20) Anaphylaxis HPI Comments Details: The patient is a 40-year-old male presenting for follow-up for fungal toenails. Patient was accompanied by his . Patient states he was unable to obtain the ciclopirox in has not been applying any medication to the nails. Patient has been consistent with Epsom salt soaks and keeping the feet clean and dry. He denies any new pedal concerns. He denies any new pedal injuries. Additionally, the patient has been experiencing edema in his legs and feet intermittently possibly due to some kidney conditions. He denies wearing compression stockings at this time. [facility] Medical History (Updated 06/23/25 @ 10:02 by Concha Schmitt DPM) Bilateral lower extremity edema Nail disorder Nail dystrophy Onycholysis Pain in left foot Cellulitis of toe of left foot Ingrowing left great toenail Callus of foot Other specified epidermal thickening Pain of right foot Onychogryphosis Onychomycosis of right great toe Onychomycosis Neuropathic pain of both feet Asthma Elevated cholesterol GERD (gastroesophageal reflux disease) Reactive airway disease Surgical History H/O excision of mass (12/16/24) Hx of umbilical hernia repair (12/16/24) Family History (Updated 05/24/25 @ 16:59 by Beatriz Gtz MD) Father Heart attack Mother Colon cancer, Onset Age: 70 Son No problems noted. Brother Heart attack Maternal Aunt Breast cancer Other AA (alcohol abuse) Mental health disorder Substance use disorder Social History (Updated 05/24/25 @ 17:01 by Beatriz Gtz MD) Housing: Other Housing Other:: In between homes Are you a primary client care specialist to a significant other at home: No Do you presently have visiting nurse or other home services: No Alcohol intake: former Comment: 2x a week 3 nips Patient Tobacco Use Status: Current everyday Tobacco user Tobacco use type: Cigarette Cigarette Packs Per Day: 1 Cigarettes Per Day: 20 Years Smoked: pack a day since 13 (asked 11/2023) marijuana e-Cigarette/Vaping Use: Never Used Second Hand Smoke Exposure: Yes service: No Current occupational status: disabled Current occupational exposures/hazards: No Cognitive needs: No Hearing needs: No Vision needs: Yes Review of Systems Const Details: Derm: Reports thickened, discolored, and dystrophic toenails x10, worse to the right hallucal nail. All systems reviewed & are unremarkable except as noted in HPI and below Physical Exam Vital Signs: BMI result Body Mass Index 46.0 Extrem Other: Bilateral lower extremity focused physical exam: Derm: Healed total nail avulsion site to the right hallux with new nail growth noted to be dystrophic and discolored with subungual debris. Healed PNA site to the medial nail border of the left hallucal nail. Slight incurvation noted to t he lateral border of the left hallucal nail. Slightly thickened and discolored nails noted to remaining toes. No purulence or drainage noted. No erythema noted. No clinical signs of infection. Vascular: DP/PT pulses palpable. Capillary refill time less than 3 seconds x10. No varicosities noted. Pedal hair present. Minimal edema noted. No varicosities noted. Neuro: Protective sensation is grossly intact. Musculoskeletal: Mild tailor's bunion noted to the left 5th toe. No pain on palpation to the right hallucal toenail (site of TNA). No pain on palpation to the lateral border of the left hallucal nail, no pain to the medial border (site of PNA). Range of motion of the forefoot and hindfoot within normal limits. MMT 5/5. No gait abnormalities noted. Assessment & Plan Assessment & Plan (1) Onychomycosis of right great toe: Code(s): B35.1 - Tinea unguium Category: Medical (2) Nail dystrophy: Code(s): L60.3 - Nail dystrophy Category: Medical (3) Nail disorder: Code(s): L60.9 - Nail disorder, unspecified Category: Medical (4) Onychomycosis: Code(s): B35.1 - Tinea unguium Category: Medical (5) Onychogryphosis: Code(s): L60.2 - Onychogryphosis Category: Medical (6) Pain of right foot: Code(s): M79.671 - Pain in right foot Category: Medical (7) Ingrowing left great toenail: Code(s): L60.0 - Ingrowing nail Category: Medical (8) Cellulitis of toe of left foot: Code(s): L03.032 - Cellulitis of left toe Category: Medical (9) Pain in left foot: Code(s): M79.672 - Pain in left foot Category: Medical (10) Onycholysis: Code(s): L60.1 - Onycholysis Category: Medical (11) Bilateral lower extremity edema: Code(s): R60.0 - Localized edema Category: Medical Plan Patient was informed and verbally consented to the use of an ambient scribe for clinic note documentation during this visit. I discussed with the patient the management of onychomycosis using [id number] treatments due to insurance limitations on prescription coverage. We also talked about the importance of monitoring for signs of infection and the use of compression socks for edema management. - For onychomycosis, patient may use [id number] treatments. - Discussed with patient extended timeline for improvement when using OTC treatment. - Monitor for signs of infection or worsening symptoms and return for evaluation if necessary. - For edema, advised patient to use compression socks. - Patient is to keep the feet, socks, and shoes clean and dry. - Patient is to avoid barefoot walking. RTC prn. Coding Level of Care Code Est Pt Level 3 (97373) Diagnoses Onychomycosis of right great toe B35.1 Nail dystrophy L60.3 Nail disorder L60.9 Onychomycosis B35.1 Onychogryphosis L60.2 Pain of right foot M79.671 Ingrowing left great toenail L60.0 Cellulitis of toe of left foot L03.032 Pain in left foot M79.672 Onycholysis L60.1 Bilateral lower extremity edema R60.0 Time Spent (min) 23
== END 2025-06-23 09:58 | disposition home or self-care (01) ==
LOC: HO.HPODS 09:36
PROVIDERS: PCP Internal Medicine; Visit Provider Student in an Organized Health Care Education/Training Program
DX: B35.1 Tinea unguium (principal); L60.3 Nail dystrophy; L60.9 Nail disorder, unspecified; L60.2 Onychogryphosis; M79.671 Pain in right foot; L60.0 Ingrowing nail; L03.032 Cellulitis of left toe; M79.672 Pain in left foot; L60.1 Onycholysis; R60.0 Localized edema
CPT/HCPCS: 99213

== ENCOUNTER → 2025-06-23 09:35 | Outpatient (BNVA) | payer MEDICARE, MEDICAID, SELFPAY | PROVIDERS: PCP Internal Medicine; Visit Provider Student in an Organized Health Care Education/Training Program | DX: B35.1 Tinea unguium (principal); L60.3 Nail dystrophy; L60.9 Nail disorder, unspecified; L60.2 Onychogryphosis; M79.671 Pain in right foot; L60.0 Ingrowing nail; L03.032 Cellulitis of left toe; M79.672 Pain in left foot; L60.1 Onycholysis; R60.0 Localized edema | CPT/HCPCS: 99212 ==

== ENCOUNTER 2025-06-27 14:41 | Outpatient (AMB) | payer MEDICARE, MEDICAID, SELFPAY ==
[2025-06-27 14:49] VITALS: BP 102/80; PULSE 67; TEMP 36.3; O2SAT 97; BMI 39.0
--- NOTE | 2025-06-27 14:49 | MHC.PC.OV ---
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 Adjuster Required: No Accompanied by: Spouse Allergies pea pods Allergy (Uncoded 06/27/25 15:08) Anaphylaxis Medication List - Last Reconciled 06/27/25 by Beatriz Gtz MD albuterol sulfate 90 mcg/actuation (Ventolin HFA) 2 puffs inhalation Q4-6H PRN No Known Home Meds Tobacco use date assessed: 06/27/25 Dental Screening Dental Screen Date: 06/27/25 Did you have a dental visit in the last 12 months?: Yes Did you have a dental problem in the last 6 months where you did not have access to dental care?: No Was dental information given to patient?: Patient has dentist [facility] Medical History (Updated 06/27/25 @ 15:27 by Beatriz Gtz MD) Bilateral lower extremity edema Nail disorder Nail dystrophy Onycholysis Pain in left foot Cellulitis of toe of left foot Ingrowing left great toenail Callus of foot Other specified epidermal thickening Pain of right foot Onychogryphosis Onychomycosis of right great toe Onychomycosis Neuropathic pain of both feet Asthma Elevated cholesterol GERD (gastroesophageal reflux disease) Reactive airway disease Surgical History H/O excision of mass (12/16/24) Hx of umbilical hernia repair (12/16/24) Family History Father Heart attack Mother Colon cancer, Onset Age: 70 Son No problems noted. Brother Heart attack Maternal Aunt Breast cancer Other AA (alcohol abuse) Mental health disorder Substance use disorder Social History Housing: Other Housing Other:: In between homes Are you a primary hospice home care coordinator to a significant other at home: No Do you presently have visiting nurse or other home services: No Alcohol intake: former Comment: 2x a week 3 nips Patient Tobacco Use Status: Current everyday Tobacco user Tobacco use type: Cigarette Cigarette Packs Per Day: 1 Cigarettes Per Day: 20 Years Smoked: pack a day since 13 (asked 11/2023) marijuana e-Cigarette/Vaping Use: Never Used Second Hand Smoke Exposure: Yes service: No Current occupational status: disabled Current occupational exposures/hazards: No Cognitive needs: No Hearing needs: No Vision needs: Yes Questionnaire PHQ-9 Over the last 2 weeks, how often have you been bothered by any of the following problems? 1. Little interest or pleasure in doing things: not at all 2. Feeling down, depressed, or hopeless: not at all 3. Trouble falling or staying asleep, or sleeping too much: not at all 4. Feeling tired or having little energy: not at all 5. Poor appetite or overeating: not at all 6. Feeling bad about yourself - or that you are a failure or have let yourself or your family down: not at all 7. Trouble concentrating on things, such as reading the newspaper or watching television: nearly every day 8. Moving or speaking so slowly that other people could have noticed. Or the opposite - being so fidgety or restless that you have been moving around a lot more than usual: not at all 9. Thoughts that you would be better off or of hurting yourself in some way: not at all Total score: 3 Source: Developed by Drs. Parish Conklin, Renae Montejo, Tyler Newman and colleagues, with an educational nani from [employer]. Thrive Questionnaire Date Thrive assessed: 06/27/25 I am a: Patient What is your living situation today?: I have a steady place to live Within the past 12 months, did the food you bought not last and you didn't have the money to get more?: Often true Within the past 12 months, did you worry whether your food would run out before you got money to buy more?: Often true Do you have trouble paying for medicines?: No Do you have trouble getting transportation to medical appointments?: No Do you have trouble paying your heating and electricity bill?: No Do you have trouble taking care of your child, family member or friend?: No Do you have trouble with day-to-day activities such as bathing, preparing meals, shopping, managing finances, etc.?: No Are you currently unemployed and looking for a job?: No Are you interested in more education?: No Currently or been in a relationship where the following occur: No concerns reported THRIVE Score: 2 AUDIT C Alcohol Use Questionnaire (AUDIT-C) 1. How often do you have a drink containing alcohol?: Never 3. How often do you have six or more drinks on one occasion?: Never Total Score: 0 DENNYS-7 AMB Questionnaire DENNYS-7 Date DENNYS - 7 assessed: 06/27/25 Feeling nervous, anxious, or on edge: 2 = More than half the days Not being able to stop or control worryin = More than half the days Worrying too much about different things: 2 = More than half the days Trouble relaxin = Several days Being so restless that it is hard to sit still: 1 = Several days Becoming easily annoyed or irritable: 1 = Several days Feeling afraid as if something awful might happen: 0 = Not at all Total DENNYS-7 score (0-4 normal; 5-9 mild; 10-14 moderate; 15-21 severe): 9 Source: Developed by Drs. Parish Conklin, Renae Montejo, Tyler Newman and colleagues, with an educational nani from [employer]. Physical exam (Primary Care) Vital Signs: Last Vital Signs Temp 97.3 F 06/27/25 14:49 Pulse 67 06/27/25 14:49 BP 102/80 06/27/25 14:49 Pulse Ox 97 06/27/25 14:49 Oxygen Delivery Method Room Air 06/27/25 14:49 BMI result Body Mass Index 39.0 Tobacco/Smoking Status: Tobacco use Status Tobacco use date assessed 06/27/25 06/27/25 15:09 Patient Tobacco Use Status Current everyday Tobacco 06/27/25 14:49 Tobacco use type Cigarette 06/27/25 14:49 e-Cigarette/Vaping Use Never Used 06/27/25 14:49 PHQ-9: PHQ-9 Score PHQ-9: Total score 3 06/27/25 18:49 Thrive Assessment: Date of Thrive Assessment Date Thrive assessed 06/27/25 06/27/25 15:12 Currently or been in a relationship where the following occur: No concerns reported Const General: alert; No acute distress Eyes Conjunctivae: conjunctivae normal Resp Auscultation: clear to auscultation bilaterally Cardio Rate: regular rate Rhythm: regular rhythm GI Inspection: Yes normal to inspection Extrem General: Yes normal to inspection and No edema Coding Level of Care Code Est Pt Level 4 (32926) Complex EM visit Add On G2211 Diagnoses Hypercholesterolemia E78.00 Obesity (BMI 30-39.9) E66.9 GERD (gastroesophageal reflux disease) K21.9 Bilateral lower extremity edema R60.0 Tobacco abuse Z72.0 Onychomycosis B35.1 Hidradenitis suppurativa L73.2 Assessment & Plan Assessment & Plan (1) Hypercholesterolemia: Code(s): E78.00 - Pure hypercholesterolemia, unspecified Category: Medical Plan: Avoid fried foods, chicken skin, eggs, butter margarine, pastries and meat. Be it pork or beef they have a lot of cholesterol LDL goal of less than 130 and triglyceride of less than 150 (2) Obesity (BMI 30-39.9): Code(s): E66.9 - Obesity, unspecified Category: Medical Plan: Diet and exercise (3) GERD (gastroesophageal reflux disease): Code(s): K21.9 - Gastro-esophageal reflux disease without esophagitis Category: Medical Plan: Avoid the foods that causes that usually spicy foods, tomato products, juices, coffee, soda and foods that your sensitive to. After eating do not lie down, allow 3-4 hours before in lie down. And keep the head of bed above 30 degrees to avoid the acid from going up. (4) Bilateral lower extremity edema: Code(s): R60.0 - Localized edema Category: Medical Plan: When sitting down elevate the legs, exercise, and support stockings (5) Tobacco abuse: Code(s): Z72.0 - Tobacco use Category: Medical Plan: Patient is strongly advised to stop smoking! (6) Onychomycosis: Code(s): B35.1 - Tinea unguium Category: Medical (7) Hidradenitis suppurativa: Code(s): L73.2 - Hidradenitis suppurativa Category: Medical Plan History of Present Illness The patient is a 40-year-old male presenting with leg pain and swelling. He describes episodes of painful swelling in the legs, noticeably worsening with walking and relieved by rest. A previously noted fungal nail infection was resolved through removal. He also experiences cramping and heat sensations in the thighs, particularly on exertion. The patient has a significant past medical history including systemic lupus erythematosus, reactive airway disease with infrequent albuterol use, hypercholesterolemia, and hidradenitis suppurativa. The patient exhibits reliance on sugary beverages, raising concern for potential diabetes development, supported by a family history of the disease. Current lifestyle habits include high soda consumption, imprudently substituting for adequate water intake noted to impact his overall well-being. Health Maintenance - Reviewed patient's elevated cholesterol concerns with recommendation for lifestyle modifications to reduce intake of fried and high-cholesterol foods. - Emphasized importance of increasing water intake for hydration. - Recommended continued avoidance of NSAIDs to protect renal function, emphasizing nephrotoxic potential. - Discussed diabetes risk reduction through dietary changes and regular monitoring given familial predisposition. - Confirmed patient is up-to-date with influenza vaccination. Social History - Tobacco Use: History of smoking - Dietary Habits: High sugar intake; heavy consumption of soda and sweet coffee. - Work/Employment: Not specified in conversation. - Hydration: Preference for soda over water; minimal water consumption reported. Review of Systems - Musculoskeletal: Reports leg pain, cramping, and swelling; no pain currently present. - Dermatological: Denies current skin eruptions; history of cysts and lesions with active management. - Respiratory: Denies breathlessness; requests inhaler refill for reactive airway disease. - Endocrine/Metabolic: Denies diagnosis but reports family history of diabetes and high sugar intake. Physical Exam - Musculoskeletal- Slight tenderness in lower legs; no current swelling observed. - Skin- Healed area where toenail was removed; ongoing small lesion in axilla. Results - Labs: Last month's report suggested elevated cholesterol levels, normal blood count. Kidney function slightly elevated at BUN of 1.11 mg/dL, remaining within normal range for age. Plan Patient was informed and verbally consented to the use of an ambient scribe for clinic note documentation during this visit. 1. Systemic Lupus Erythematosus Continuous renal monitoring to prevent exacerbation due to NSAID use. Increase hydration. 2. Reactive Airway Disease Refilling albuterol inhaler, emphasizing cessation of smoking. 3. Hypercholesterolemia Dietary counselor referral and increased activity to control cholesterol. Consider statins if lifestyle interventions are ineffective by next follow-up. 4. Fungal Nail Infection Mycotic Toenail Monitor resolution post nail removal; educate on measures to avoid recurrence. 5. Hidradenitis Suppurativa Dermatology referral for advanced therapeutics and minimizing antibiotic usage impacts. Discussion Notes During the consultation, we discussed the implications of untreated elevated cholesterol and its cardiovascular effects, underscored by dietary choices and inactivity. Referral to dermatology for hidradenitis suppurativa was discussed, considering the risks and benefits of biologic therapy over traditional antibiotics. The patient and I reviewed lifestyle factors including the high sugar intake and lack of adequate water consumption, underscoring the potential diabetes risk and renal implications if current habits perpetuate. Advised cessation of soda use and increasing water intake to correct electrolyte imbalance gently. I addressed leg cramping attributed to circulation and hydration concerns, advising decreased soda intake and increased hydration to alleviate symptoms. Patient Instructions - Fill your prescribed inhaler refill at your pharmacy. - Try to increase your water intake to improve hydration. Aim to drink water throughout the day. - Reduce your sugary drink consumption; consider alternatives low in sugar. - Pay attention to recurring skin lesions and consult dermatology as needed. - Monitor leg swelling and report noticeable changes urgently. - Adhere to lifestyle changes with the focus on improved dietary habits for cholesterol management. Avoid high-fat and fried foods. - Follow up with me if you have increased symptoms or concern errors. Orders: Referrals Dermatology Referral L73.2 - Hidradenitis suppurativa Medications: Refilled albuterol sulfate 90 mcg/actuation (Ventolin HFA) 2 puffs inhalation Q4-6H PRN 8.5 grams 0RF shortness of breath or wheezing J45.909 - Unspecified asthma, uncomplicated
== END 2025-06-27 15:32 | disposition home or self-care (01) ==
LOC: HO.HMCH 14:42
PROVIDERS: PCP Internal Medicine; Visit Provider Internal Medicine
DX: E78.00 Pure hypercholesterolemia, unspecified (principal); E66.9 Obesity, unspecified; Z68.39 Body mass index [BMI] 39.0-39.9, adult; K21.9 Gastro-esophageal reflux disease without esophagitis; R60.0 Localized edema; Z72.0 Tobacco use; B35.1 Tinea unguium; L73.2 Hidradenitis suppurativa

== ENCOUNTER → 2025-06-27 14:41 | Outpatient (BNVA) | payer MEDICARE, MEDICAID, SELFPAY | PROVIDERS: PCP Internal Medicine; Visit Provider Internal Medicine | DX: M32.9 Systemic lupus erythematosus, unspecified (principal); J45.909 Unspecified asthma, uncomplicated; B35.1 Tinea unguium; Z98.890 Other specified postprocedural states; E78.00 Pure hypercholesterolemia, unspecified; K21.9 Gastro-esophageal reflux disease without esophagitis; E66.9 Obesity, unspecified; Z72.0 Tobacco use; L73.2 Hidradenitis suppurativa; Z13.31 Encounter for screening for depression; Z13.39 Encounter for screening examination for other mental health and behavioral disorders; Z79.899 Other long term (current) drug therapy | CPT/HCPCS: 96127; 99212 ==

== ENCOUNTER 2025-07-12 08:49 | Outpatient (AMB) | payer MEDICARE, MEDICAID, SELFPAY ==
[2025-07-12 08:58] VITALS: BP 118/66; PULSE 79; TEMP 36.2; O2SAT 98; BMI 39.0
--- NOTE | 2025-07-12 08:58 | MHC.PC.OV ---
Vital Signs 07/12/25 08:58 Height 5 ft 7 in Weight 249 lb 2 oz BMI 39.0 BP 118/66 Blood Pressure Location Lt brachial Position Sitting Pulse 79 Pulse Source Pulse Oximeter Temp 97.1 F Temp Source Temporal Artery Scan Pulse Oximetry (%) 98 Oxygen Delivery Method Room Air Intake Visit Reasons: Cyst under left arm Accompanied by: Significant Other Allergies pea pods Allergy (Uncoded 06/27/25 15:08) Anaphylaxis Medication List - Last Reconciled 07/12/25 by Beatriz Gtz MD albuterol sulfate 90 mcg/actuation (Ventolin HFA) 2 puffs inhalation Q4-6H PRN doxycycline hyclate 100 mg PO BID 30 days metformin 500 mg PO BIDWMEAL Tobacco use date assessed: 07/12/25 Dental Screening Dental Screen Date: 06/27/25 Did you have a dental visit in the last 12 months?: Yes Did you have a dental problem in the last 6 months where you did not have access to dental care?: No Was dental information given to patient?: Patient has dentist HPI Cyst under left arm HPI Details floaters noted 3 days ago but vision is ok, as for as the L axillary mass 1 week and getting red HPI Comments History of Present Illness Details History of Present Illness The patient is a 40 year old individual presenting for follow-up of hidradenitis suppurativa and evaluation of new onset eye floaters. The patient has a diagnosis of hidradenitis suppurativa (HS), with a history of recurrent axillary and scrotal abscesses. The patient's brother also has HS. The current episode involves a growth that started about a week ago and is getting bigger. The patient has found past antibiotic treatments to cause sickness or other infections. A prior surgical procedure for this condition has reportedly not healed properly. The patient also reports new onset of eye floaters, which started last Friday. The patient describes it as feeling like bugs in the eye, noting it began as one floater and has now increased to about three. Past medical history is significant for obesity, hypercholesterolemia, GERD, renal insufficiency, and rectivary artery disease. The patient does not have a history of systemic lupus. Surgical history includes an umbilical hernia repair and a right axillary inclusion cyst excision in December 2024. The patient also has a history of a sebaceous cyst of the dorsum, an animal bite in March, and is followed by podiatry. Laboratory work from May 27 showed normal blood count, electrolytes, blood sugar, and liver function, with a creatinine of 1.11 and an elevated LDL of 146. The patient uses an inhaler for occasional exertional dyspnea, having used it twice recently while moving. Health Maintenance - Smoking cessation: The patient was strongly advised to stop smoking, but currently smokes about half a pack a day. - Diet and exercise were recommended for GERD and cholesterol management. - Cholesterol goals: LDL goal is less than 130 and triglyceride goal is less than 150. - Vaccinations: The patient reports being up-to-date on all vaccinations, including flu and tetanus shots. Social History - Substance Use: The patient smokes about half a pack of cigarettes per day. - Activity Level: The patient reports getting winded with exertion like moving up and down stairs, requiring inhaler use, but not with long walks. Results - Labs from May 27: - Complete blood count: Normal. - Electrolytes: Normal. - Renal function: Creatinine 1.11. - Blood sugar: Normal. - Liver function test: Normal. - LDL cholesterol: 146, elevated. [facility] Medical History Bilateral lower extremity edema Nail disorder Nail dystrophy Onycholysis Pain in left foot Cellulitis of toe of left foot Ingrowing left great toenail Callus of foot Other specified epidermal thickening Pain of right foot Onychogryphosis Onychomycosis of right great toe Onychomycosis Neuropathic pain of both feet Asthma Elevated cholesterol GERD (gastroesophageal reflux disease) Reactive airway disease Surgical History H/O excision of mass (12/16/24) Hx of umbilical hernia repair (12/16/24) Family History Father Heart attack Mother Colon cancer, Onset Age: 70 Son No problems noted. Brother Heart attack Maternal Aunt Breast cancer Other AA (alcohol abuse) Mental health disorder Substance use disorder Social History Housing: Other Housing Other:: In between homes Are you a primary healthcare applications analyst to a significant other at home: No Do you presently have visiting nurse or other home services: No Alcohol intake: former Comment: 2x a week 3 nips Patient Tobacco Use Status: Current everyday Tobacco user Tobacco use type: Cigarette Cigarette Packs Per Day: 1 Cigarettes Per Day: 20 Years Smoked: pack a day since 13 (asked 11/2023) marijuana Packs Per Year: 0 Packs per year/per ci.00 e-Cigarette/Vaping Use: Never Used Second Hand Smoke Exposure: Yes service: No Current occupational status: disabled Current occupational exposures/hazards: No Cognitive needs: No Hearing needs: No Vision needs: Yes Questionnaire PHQ-9 Over the last 2 weeks, how often have you been bothered by any of the following problems? 1. Little interest or pleasure in doing things: not at all 2. Feeling down, depressed, or hopeless: not at all 3. Trouble falling or staying asleep, or sleeping too much: not at all 4. Feeling tired or having little energy: not at all 5. Poor appetite or overeating: not at all 6. Feeling bad about yourself - or that you are a failure or have let yourself or your family down: not at all 7. Trouble concentrating on things, such as reading the newspaper or watching television: nearly every day 8. Moving or speaking so slowly that other people could have noticed. Or the opposite - being so fidgety or restless that you have been moving around a lot more than usual: not at all 9. Thoughts that you would be better off or of hurting yourself in some way: not at all Total score: 3 Source: Developed by Drs. Parish Conklin, Renae Montejo, Tyler Newman and colleagues, with an educational nani from [employer]. Thrive Questionnaire Date Thrive assessed: 04/08/25 I am a: Patient What is your living situation today?: I have a steady place to live Within the past 12 months, did the food you bought not last and you didn't have the money to get more?: Often true Within the past 12 months, did you worry whether your food would run out before you got money to buy more?: Often true Do you have trouble paying for medicines?: No Do you have trouble getting transportation to medical appointments?: No Do you have trouble paying your heating and electricity bill?: No Do you have trouble taking care of your child, family member or friend?: No Do you have trouble with day-to-day activities such as bathing, preparing meals, shopping, managing finances, etc.?: No Are you currently unemployed and looking for a job?: No Are you interested in more education?: No Currently or been in a relationship where the following occur: No concerns reported THRIVE Score: 2 AUDIT C Alcohol Use Questionnaire (AUDIT-C) 1. How often do you have a drink containing alcohol?: Never 3. How often do you have six or more drinks on one occasion?: Never Total Score: 0 DENNYS-7 AMB Questionnaire DENNYS-7 Date DENNYS - 7 assessed: 06/27/25 Feeling nervous, anxious, or on edge: 2 = More than half the days Not being able to stop or control worryin = More than half the days Worrying too much about different things: 2 = More than half the days Trouble relaxin = Several days Being so restless that it is hard to sit still: 1 = Several days Becoming easily annoyed or irritable: 1 = Several days Feeling afraid as if something awful might happen: 0 = Not at all Total DENNYS-7 score (0-4 normal; 5-9 mild; 10-14 moderate; 15-21 severe): 9 Source: Developed by Drs. Parish Conklin, Renae Montejo, Tyler Newman and colleagues, with an educational nani from [employer]. Review of Systems Narrative Review of Systems - Skin: Reports recurrent abscesses on the arms and groin area. - Reports a new growth for the past week that is enlarging. - Eyes: Reports new onset of floaters in one eye since Friday, described as seeing - The number of floaters has increased from one to about three. - Respiratory: Reports feeling winded with exertion. - Denies needing inhaler unless exerting. Physical exam (Primary Care) Vital Signs: Last Vital Signs Temp 97.1 F 07/12/25 08:58 Pulse 79 07/12/25 08:58 BP 118/66 07/12/25 08:58 Pulse Ox 98 07/12/25 08:58 Oxygen Delivery Method Room Air 07/12/25 08:58 BMI result Body Mass Index 39.0 Tobacco/Smoking Status: Tobacco use Status Tobacco use date assessed 07/12/25 07/12/25 09:03 Patient Tobacco Use Status Current everyday Tobacco 07/12/25 09:03 Tobacco use type Cigarette 07/12/25 09:03 e-Cigarette/Vaping Use Never Used 07/12/25 09:03 PHQ-9: PHQ-9 Score PHQ-9: Total score 3 07/12/25 09:32 Thrive Assessment: Date of Thrive Assessment Date Thrive assessed 04/08/25 07/12/25 09:03 Currently or been in a relationship where the following occur: No concerns reported Narrative Physical Exam - General: 40-year-old male, obese. - Cardiovascular: On auscultation, heart sounds were noted to be good. - Respiratory: On auscultation, lungs were noted to be good. Const General: alert; No acute distress Eyes Conjunctivae: conjunctivae normal Resp Auscultation: clear to auscultation bilaterally Cardio Rate: regular rate Rhythm: regular rhythm GI Inspection: Yes normal to inspection Extrem Other: Right axilla noted to have incisional scar with mild redness, left axilla noted to be erythematous about 5 in irregular border with round 3 inch mass protruding. Coding Level of Care Code Complex visit Add On G2211 Diagnoses Tobacco abuse Z72.0 GERD (gastroesophageal reflux disease) K21.9 Obesity (BMI 30-39.9) E66.9 Hypercholesterolemia E78.00 Left axillary hidradenitis L73.2 Floaters H43.399 Assessment & Plan Assessment & Plan (1) Tobacco abuse: Code(s): Z72.0 - Tobacco use Category: Medical Plan: Patient is strongly advised to stop smoking! (2) GERD (gastroesophageal reflux disease): Code(s): K21.9 - Gastro-esophageal reflux disease without esophagitis Category: Medical Plan: Patient is strongly advised to stop smoking ! Avoid the foods that causes that usually spicy foods, tomato products, juices, coffee, soda and foods that your sensitive to. After eating do not lie down, allow 3-4 hours before in lie down. And keep the head of bed above 30 degrees to avoid the acid from going up. (3) Obesity (BMI 30-39.9): Code(s): E66.9 - Obesity, unspecified Category: Medical Plan: Diet and exercise (4) Hypercholesterolemia: Code(s): E78.00 - Pure hypercholesterolemia, unspecified Category: Medical Plan: Avoid fried foods, chicken skin, eggs, butter margarine, pastries and meat. Be it pork or beef they have a lot of cholesterol LDL goal of less than 130 and triglyceride of less than 150 (5) Left axillary hidradenitis: Code(s): L73.2 - Hidradenitis suppurativa Category: Medical Plan: Started on doxycycline and on guidelines start on metformin also. (6) Floaters: Code(s): H43.399 - Other vitreous opacities, unspecified eye Category: Medical Plan: Referral to Ophthalmology Plan Plan Patient was informed and verbally consented to the use of an ambient scribe for clinic note documentation during this visit. 1. Hidradenitis Suppurativa The patient presents with an active, enlarging lesion consistent with the standing diagnosis of hidradenitis suppurativa (HS). Per current guidelines, treatment will be initiated with metformin, in addition to a prolonged course of doxycycline antibiotic. The doxycycline will be prescribed at 100 mg, taken twice daily for three months. Metformin will also be taken twice daily. The patient has a referral letter for dermatology and is advised to proactively schedule an appointment. Intralesional injections were discussed as a potential next step in treatment. 2. Vitreous Floaters The patient reports a new onset of vitreous floaters in one eye, which started recently and have increased in number. A referral to ophthalmology will be placed with the [facility] in [place] to ensure a timely evaluation. 3. Tobacco Use Disorder The patient continues to smoke half a pack of cigarettes daily. The patient was strongly advised to stop smoking, and it was explained that smoking worsens circulation. 4. Hypercholesterolemia The patient's LDL was noted to be elevated at 146 on recent labs. Management includes recommendations for diet and exercise, with a target LDL below 130 and triglycerides below 150. 5. Exertional Dyspnea The patient reports infrequent use of a rescue inhaler, primarily for dyspnea on exertion, such as when moving. The option of a daily controller inhaler was discussed if the use of the rescue inhaler increases. Discussion Notes I discussed the management plan for the patient's hidradenitis suppurativa, which involves initiating both metformin and a three-month course of doxycycline, explaining this is based on current treatment guidelines. I informed the patient that the next step in treatment could be intralesional injections. Regarding the new-onset eye floaters, I explained the need for an ophthalmology evaluation and will place a referral to a specific group to avoid a long wait time. I also addressed the intermittent use of the rescue inhaler, advising the patient that a controller inhaler is an option should usage become more frequent. I strongly reiterated the importance of smoking cessation, explaining its negative impact on circulation. Patient Instructions - Take Doxycycline 100 mg twice a day for the next three months for your skin condition. - Take Metformin twice a day as prescribed, at the same times as your doxycycline. - A referral will be made for you to see an eye doctor for the floaters you are experiencing. - Please contact the dermatology office to schedule your follow-up appointment. - You are strongly advised to stop smoking, as it is harmful to your circulation and overall health. - If you find you are using your rescue inhaler more often, please let me know so we can discuss other options. - Continue with diet and exercise to help manage your cholesterol. Orders: Referrals Ophthalmology Referral H43.399 - Other vitreous opacities, unspecified eye Medications: New doxycycline hyclate 100 mg PO BID 60 caps 2RF 30 days L73.2 - Hidradenitis suppurativa metformin 500 mg PO BIDWMEAL 60 tabs 0RF L73.2 - Hidradenitis suppurativa
== END 2025-07-12 09:44 | disposition home or self-care (01) ==
LOC: HO.HMCH 08:50
PROVIDERS: PCP Internal Medicine; Visit Provider Internal Medicine
DX: K21.9 Gastro-esophageal reflux disease without esophagitis (principal); E66.9 Obesity, unspecified; Z68.39 Body mass index [BMI] 39.0-39.9, adult; Z72.0 Tobacco use; E78.00 Pure hypercholesterolemia, unspecified; L73.2 Hidradenitis suppurativa; H43.391 Other vitreous opacities, right eye

== ENCOUNTER → 2025-07-12 08:49 | Outpatient (BNVA) | payer MEDICARE, MEDICAID, SELFPAY | PROVIDERS: PCP Internal Medicine; Visit Provider Internal Medicine | DX: L73.2 Hidradenitis suppurativa (principal); K21.9 Gastro-esophageal reflux disease without esophagitis; E66.9 Obesity, unspecified; E78.00 Pure hypercholesterolemia, unspecified; Z72.0 Tobacco use; H43.391 Other vitreous opacities, right eye; R06.00 Dyspnea, unspecified; Z13.31 Encounter for screening for depression | CPT/HCPCS: 96127; 99212 ==